=== PATIENT | female | born 1990 | race Two or more races ===

== ENCOUNTER 2024-11-17 04:57 | Day surgery (SDC) | payer OTHER, SELFPAY ==
[2024-11-17] VITALS (25 sets, daily range): BP systolic 87–121; BP diastolic 53–84; PULSE 66–96; RESP 16–24; TEMP 36.7–37.1; O2SAT 80–100; BMI 25.6
--- NOTE | 2024-11-17 05:06 | CRLHL7_ITS ---
For Patients: As a result of the Century Cures Act, medical imaging exams and procedure reports are released immediately into your electronic medical record. You may view this report before your referring provider. If you have questions, please contact your health care provider. INDICATION: Abdominal pain TECHNIQUE: CT abdomen and pelvis acquired with 69 cc Isovue 370 IV contrast. COMPARISON: None. FINDINGS: Lower chest: Bibasilar atelectasis. Liver: Unremarkable. Gallbladder and bile ducts: Unremarkable. Pancreas: Unremarkable. Spleen: Unremarkable. Adrenal glands: Unremarkable. Kidneys: No hydronephrosis or nephrolithiasis. GI tract: No obstruction. Fecalization of distal ileal contents, which can be seen with slow transit. Dilated appendix measuring 9 millimeters with appendicolith measuring 6 millimeters at the base. Vasculature: Abdominal aorta is normal in caliber. Mesenteric arteries are patent. Lymph nodes: No lymphadenopathy. Peritoneum/Abdominal Wall: Unremarkable. Pelvis: Unremarkable. Bones: Unremarkable for age. IMPRESSION: Dilated appendix with appendicolith at the base is concerning for early appendicitis. Please note that all CT scans at this facility use dose modulation, iterative reconstruction, and/or weight-based dosing when appropriate to reduce radiation dose to as low as reasonably achievable. Dictated by Chika Chung MD @ 11/17/2024 6:07:03 AM (Electronically Signed)
--- NOTE | 2024-11-17 05:08 | ED.ABDPAIN ---
HPI - Abdominal Pain General Chief Complaint: Abdominal Pain Stated Complaint: abdominal pain Time Seen by Provider: 11/17/24 04:59 History of Present Illness HPI narrative: Patient is a 32 to year old woman with chronic abdominal pain who presents with a mid abdominal pain with radiation through to her back. Pain is severe and 10 on 10 in intensity. She describes is a severe pressure. She has been having normal bowel movements although she is somewhat constipated. She has no reflux symptoms no nausea no vomiting. She states she had endoscopy and colonoscopy in July or 4 months ago but is unaware of the results. Patient states she has her menses right now. She has had no fevers no chills no night sweats. She has intermittent symptoms but nothing as bad as tonight. Related Data Allergies Allergy/AdvReac Type Severity Reaction Status Date / Time indomethacin Allergy Verified 11/17/24 05:09 Sulfa (Sulfonamide Allergy Verified 11/17/24 05:09 Antibiotics) Review of Systems Status of ROS Reports: 10 or more systems reviewed and unremarkable except as noted in History and below PFSH PFSH Social History Smoking Status: Never smoker Second hand tobacco smoke exposure: No How often do you have a drink containing alcohol: never AUDIT-C Alcohol total score: 0 Non-prescribed substance use: denies use Exam Narrative: Exam Narrative: EXAM GENERAL: Patient appears to be writhing EYES: No scleral icterus. LYMPH: No supraclavicular or cervical lymphadenopathy. SKIN: Visible skin seen during exam normal or with benign process only. EXT: No dependent lower extremity pedal edema. HEART: Regular rate and rhythm with no murmurs, rubs, or gallops. LUNGS: Clear to auscultation bilaterally with no crackles or wheezes. ABD: Soft, minimally tender to palpation info active bowel sounds some rebound noted. PSYCH: Good eye contact, speech is not pressured. Const: Vital Signs, click to edit/add: Vital Signs - 24 hr 11/17/24 05:05 11/17/24 05:41 11/17/24 05:42 Temperature 98.0 F 98.0 F Pulse Rate [Pulse Oximeter] 85 84 Respiratory Rate 24 20 Blood Pressure [Ri ght Upper Arm] 121/84 118/74 Pulse Oximetry 98 80 L 98 Oxygen Delivery Me thod Nasal Cannula Oxygen Flow Rate 2 11/17/24 05:43 Temperature Pulse Rate [Pulse Oximeter] Respiratory Rate Blood Pressure [Ri ght Upper Arm] Pulse Oximetry 98 Oxygen Delivery Me thod Nasal Cannula Oxygen Flow Rate 2 Course Course ED Course: Patient seen and examined. Normal saline started. 1 mg of Ativan given. CBC comprehensive metabolic panel lipase UA CT abdomen pelvis pending. Vital Signs Vital signs: Initial Vital Signs Temperature 98.0 F 11/17/24 05:05 Temperature Source Temporal Artery Scan 11/17/24 05:05 Pulse Rate 85 11/17/24 05:05 Respiratory Rate 24 11/17/24 05:05 Blood Pressure 121/84 11/17/24 05:05 Blood Pressure Mean 96 11/17/24 05:05 Blood Pressure Position Sitting 11/17/24 05:05 Pulse Oximetry 98 11/17/24 05:05 Vital Signs Temperature 98.0 F 11/17/24 05:05 Pulse Rate 85 11/17/24 05:05 Respiratory Rate 24 11/17/24 05:05 Blood Pressure 121/84 11/17/24 05:05 Pulse Oximetry 98 11/17/24 05:05 Temperature 98.0 F 11/17/24 05:42 Pulse Rate 84 11/17/24 05:42 Respiratory Rate 20 11/17/24 05:42 Blood Pressure 118/74 11/17/24 05:42 Pulse Oximetry 98 11/17/24 05:43 Oxygen Delivery Method Nasal Cannula 11/17/24 05:43 Oxygen Flow Rate 2 11/17/24 05:43 Medications Administered Medications: Generic Name Dose Route Start Last Admin Trade Name Freq PRN Reason Stop Dose Admin Hydromorphone HCl 0.5 mg 11/17/24 06:10 11/17/24 05:20 Hydromorphone 0.5 Mg/0.5 Ml Inj IVP 11/17/24 06:11 0.5 mg ONCE ONE Administration Discontinued Medications Generic Name Dose Route Start Last Admin Trade Name Freq PRN Reason Stop Dose Admin Sodium Chloride 1,000 mls @ 1,000 mls/hr 11/17/24 05:07 11/17/24 06:15 0.9 % Sodium Chloride 1000 Ml IV 11/17/24 06:06 Infused .Q1H ANDERS Infusion Lorazepam 1 mg 11/17/24 05:07 11/17/24 05:12 Lorazepam 2 Mg/Ml Inj IVP 11/17/24 05:08 1 mg ONCE ONE Administration MDM - Abdominal Pain MDM Narrative Medical decision making narrative: Patient arrives with durable abdominal pain is in the midline. She was given IV Ativan and Dilaudid to help with her symptoms. Her CT [place] positive [place] [id number]. I did call and speak with the general surgeon and the patient will have an appendectomy this morning. She is medically stable. Lab Data Labs: Lab Results 11/17/24 Range/Units 05:10 WBC 16.41 H (4.50-11.00) K/uL RBC 4.61 (4.00-5.20) m/uL Hgb 11.9 L (12.0-16.0) gm/dL Hct 35.7 (33.0-51.0) % MCV 77 L (80-100) fL MCH 26 (26-34) pg MCHC 33 (32-36) gm/dL RDW Coeff of Karie 13.3 (11.5-15.5) % Plt Count 386 (140-440) K/uL Neut % (Auto) 89.0 H (42.0-72.0) % Lymph % (Auto) 7.3 L (20-44) % Clinton % (Auto) 3.4 (0.0-11.0) % Eos % (Auto) 0.1 (0.0-7.0) % Baso % (Auto) 0.1 (0.0-3.0) % Neut # (Auto) 14.60 H (1.7-7.0) K/uL Lymph # (Auto) 1.20 (0.90-2.90) K/uL Clinton # (Auto) 0.60 (0.00-0.90) K/UL Eos # (Auto) 0.00 (0.00-0.50) K/uL Baso # (Auto) 0.00 (0.00-0.30) K/uL Abs Immat Gran (auto) 0.00 (0.00-0.30) K/uL Imm/Tot Granulo (auto) 0.1 % Sodium 139 (135-149) mmol/L Potassium 3.7 (3.6-5.1) mmol/L Chloride 104 (96-114) mmol/L Carbon Dioxide 21 (20-32) mmol/L Anion Gap 14 (7-15) mEq/L BUN 14 (5-24) mg/dL Creatinine 0.8 (0.5-1.5) mg/dL Estimated Creat Clear 79.85 Estimated GFR 100 ml/min Glucose 135 H (60-115) mg/dL Calcium 9.6 (8.4-10.6) mg/dL Total Bilirubin 0.7 (0.1-1.5) mg/dL AST 35 (12-35) U/L ALT 37 H (4-35) U/L Alkaline Phosphatase 95 (40-150) U/L Total Protein 8.5 H (6.0-8.3) g/dL Albumin 5.0 (3.3-5.0) g/dL Lipase 103 (23-300) U/L Discharge Plan Discharge Clinical Impression: Acute appendicitis Patient Disposition: Admitted As Observation Condition: Stable Activity Level: Other Discharge Diet: Other
[2024-11-17] MEDS: LORazepam 2 MG/ML inj 1 MG IVP (05:12)
[2024-11-17] MEDS: 0.9 % SODIUM CHLORIDE 1000 ml 1,000 ML IV (05:13)
[2024-11-17] MEDS: HYDROmorphone 0.5 mg/0.5 ml inj IVP ×2 (05:20→09:10)
[2024-11-17 05:24] LABS: Basophils Percent Auto 0.1 % (0.0-3.0); Eosinophils Percent Auto 0.1 % (0.0-7.0); Hematocrit 35.7 % (33.0-51.0); Hemoglobin* 11.9 gm/dL (12.0-16.0); Immature Granulocytes Pct Auto 0.1 %; Lymphocytes Percent Auto 7.3 % (20-44); Mean Corpuscular HGB Conc 33 gm/dL (32-36); Mean Corpuscular Hemoglobin 26 pg (26-34); Mean Corpuscular Volume 77 fL (80-100); Monocytes Percent Auto 3.4 % (0.0-11.0); Platelet Count* 386 K/uL (140-440); RDW Coefficient of Variation % 13.3 % (11.5-15.5); Red Blood Count 4.61 m/uL (4.00-5.20); White Blood Count* 16.41 K/uL (4.50-11.00)
[2024-11-17 05:32] LABS: Slide Review Reflex No
[2024-11-17 05:37] LABS: Chloride* 104 mmol/L (96-114); Potassium* 3.7 mmol/L (3.6-5.1); Sodium* 139 mmol/L (135-149)
[2024-11-17 05:40] LABS: Alanine Aminotransferase* 37 U/L (4-35); Alkaline Phosphatase* 95 U/L (40-150); Anion Gap 14 mEq/L (7-15); Aspartate Amino Transferase* 35 U/L (12-35); Bilirubin Total* 0.7 mg/dL (0.1-1.5); Blood Urea Nitrogen* 14 mg/dL (5-24); Calcium* 9.6 mg/dL (8.4-10.6); Carbon Dioxide* 21 mmol/L (20-32); Creatinine* 0.8 mg/dL (0.5-1.5); Est. Creatinine Clearance* 79.85; Estimated Glomerular Filt Rate 100 ml/min; Glucose* 135 mg/dL (60-115); Lipase* 103 U/L (23-300); Total Protein* 8.5 g/dL (6.0-8.3)
[2024-11-17 05:45] LABS: Appearance Urine Clear (Clear); Bilirubin Urine Negative (Negative); Blood Urine 1+ (Negative); Color Urine Yellow (Yellow); Glucose Urine Negative (Negative); Ketones Urine 3+ (Negative); Leukocyte Esterase Urine Negative (Negative); Nitrite Urine Negative (Negative); Protein Urine Negative (Negative); Specific Gravity Urine 1.015 (1.000-1.030); Urobilinogen Urine 0.2 (0.2-1.0); pH Urine 8.5 (5.0-8.5)
[2024-11-17 06:26] LABS: Bacteria Urine Few; RBC Urine 0-2 (0-2); Squamous Epithelial Cell Urine Few (None-Few); WBC Urine 0-2 (0-5)
--- OUTSIDE RECORDS SUMMARY | 2024-11-17 06:48 | XMS_ITS ---
Author Organization [facility] Address [address] [facility] [address] [place] [address] Care Team Providers Care Capsule Filler Name Role Phone Radha Guillermo Primary Care Provider Allergies Allergen (clinical drug ingredient) Drug/Non Drug Allergy documented on EMR Reaction Allergy Type Onset Date Status indomethacin Indomethacin Unknown Drug Allergy 08/28/2021 Active sulfasalazine sulfaSALAzine Unknown Drug Allergy 2 Active REASON FOR VISIT 3 month follow up/flc, RA Medications Medication SIG (Take, Route, Frequency, Duration) Notes Start Date End Date Status Omeprazole 20 MG take 1 capsule (20 m g) by oral route once daily before a meal Oral 1 Active Folic Acid 1 MG take 1 tablet (1 mg) by oral route once daily Oral 1 Active Spironolactone 50 MG 1 tablet Orally Onc e a day for 30 day(s) Active Rosuvastatin Calcium 5 MG 1 tablet Orall y Once a day for 30 day(s) Active Simponi 50 mg/0.5 mL inject 0.5 millilit er (50 mg) by subcutaneous route once a month Subcutaneous monthly for 90 days 03/17/2023 07/24/2024 Active Encounters Encounter Location Date Provider Diagnosis [facility] [address] [facility] [address] [place] [address] 01/27/2024 Radha Guillermo Rheumatoid arthritis without rheumatoid factor, multiple sites M06.09 ; History of pericarditis Z86.79 ; History of uveitis Z86.69 and High risk medication use Z79.899 Assessments Encounter Date Diagnosis (ICD Code) Assessment Notes Treatment Notes Treatment Clinical Notes Section Notes 01/27/2024 Rheumatoid arthritis without rheumatoid factor, multiple sites (ICD-10 - M06.09) mildly symptomatic, simponi helping, will continue, moving to [place] soon, advised to find a manager security there, will release records, med refilled 01/27/2024 History of pericarditis (ICD-10 - Z86.79) mildly symptomatic, simponi helping, will continue, moving to [place] soon, advised to find a manager security there, will release records, med refilled 01/27/2024 History of uveitis (ICD-10 - Z86.69) mildly symptomatic, simponi helping, will continue, moving to [place] soon, advised to find a manager security there, will release records, med refilled 01/27/2024 High risk medication use (ICD-10 - Z79.899) mildly symptomatic, simponi helping, will continue, moving to [place] soon, advised to find a manager security there, will release records, med refilled Plan Of Treatment Medication Medication Name Sig Start Date Stop Date Notes Simponi 50 mg/0.5 mL inject 0.5 millilit er (50 mg) by subcutaneous route once a month Subcutaneous monthly for 90 days 03/17/2023 07/24/2024 Progress Notes * Yessica NOLASCO ADOB:1990 (33 yo F)Acc No.[id number]:01/27/2024 Patient: Yessica JENKINS A Provider: Jose GUILLERMO MD :1990 A ge:33 Y S ex:Female Date:01/27/2024 Address:[address] [place] [address] Subjective: * Chief Complaints: * 3 month follow up/flcRA * HPI: G eneral Follow up: Synchronous video/audio telecommunication with [employer] Patient has agreed to telehealth visit and is aware insurance will be billed for this visit Location: patient at home, physician in office on simponi injection, helping, elbow ache a little, other joints are fine, am stiffness 2 to 3 hours, takes aleve or tylenol as needed moving to [place] soon stopped MTX did not work and caused GI issues. plaquenil caused eye side effects, Humira worked at the beginning. It lost some effectiveness after a while. 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 * ROS: G eneral / Constitutional: Patient denies c hange in appetite, chills, fatigue, fever, weight loss, weakness. C omments S [facility] for details. M usculoskeletal: Comments [facility] for details. S kin: Comments [facility] for details . N eurologic: Patient denies d izziness, gait abnormality, headache, tingling / numbness . * Medical History: * Surgical History: C section; 2021-08-28 * Hospitalization/Major Diagno stic Procedure: * Family History: M igrated Family History: Breast cancer , Heart Attack , Kidney Cancer , Lung Cancer . * Social History: M igrated Social History: M igrated Social History: :: 1 Daughter , Exercise :: Does not exercise regularly , Marital Status :: , Substance Use :: rare alcohol usage , Substance Use :: Tobacco :: Former :: note : 10/09/2021 - quit 7-8 years ago. * Medications: T akingFolic Acid 1 MG Tablet take 1 tablet (1 mg) by oral route once daily Oral 1 Omeprazole 20 MG Capsule Delayed Release take 1 capsule (20 mg) by oral route once daily before a meal Oral 1 Simponi 50 mg/0.5 mL Solution Prefilled Syringe inject 0.5 milliliter (50 mg) by subcutaneous route once a month Subcutaneous [id number]-[id number] , stop date 03/11/2024Spironolactone 50 MG Tablet 1 tablet Orally Once a day Rosuvastatin Calcium 5 MG Tablet 1 tablet Orally Once a day Taking Folic Acid 1 MG Tablet take 1 tablet (1 mg) by oral route once daily Oral 1 Taking Omeprazole 20 MG Capsule Delayed Release take 1 capsule (20 mg) by oral route once daily before a meal Oral 1 Taking Simponi 50 mg/0.5 mL Solution Prefilled Syringe inject 0.5 milliliter (50 mg) by subcutaneous route once a month Subcutaneous [id number]-56 , stop date 03/11/2024Taking Spironolactone 50 MG Tablet 1 tablet Orally Once a day Taking Rosuvastatin Calcium 5 MG Tablet 1 tablet Orally Once a day * Allergies: I ndomethacin: Allergy - Onset Date 08/28/2021ulfaSALAzine: Allergy - Onset Date 12/24/2021no[Allergies Verified] Objective: * Vitals: * Examination: G eneral Examination: General appearance: a lert, well-nourished and in no acute distress. Head: n ormocephalic, atraumatic. Eyes: n ormal. Skin: n o rash. Lungs: r espiratory effort normal. P sychiatry: Affect / mood: n ormal affect, normal mood. ? N eurology: s peech normal. Assessment: * Assessment: 1. R heumatoid arthritis without rheumatoid factor, multiple sites - M06.09 (Primary) ? 2 . H istory of pericarditis - Z86.79 3 . H istory of uveitis - Z86.69 4 . H igh risk medication use - Z79.899 mildly symptomatic, simponi helping, will continue, moving to [place] soon, advised to find a manager security there, will release records, med refilled Plan: * Treatment: * Procedure Codes: * Billing Information: * Visit Code: 16852 Office Visit, Est Pt., Level 4. Modifiers: 95 * Procedure Codes: * Sign off status: Completed true * Provider: Jose GUILLERMO MD Date: 0 01/27/2024 Generated for Fernandez ivan/North/Bibi on: 0 11/17/2024 06:48 AM CDT History and Physical Notes * HPI (History of Present Illness) Category Sub-Category Detail Notes Category Not es General Follow up Synchronous video/audio telecommunication with [facility] Patient has agreed to telehealth visit and is aware insurance will be billed for this visit Location: patient at home, physician in office on simponi injection, helping, elbow ache a little, other joints are fine, am stiffness 2 to 3 hours, takes aleve or tylenol as needed moving to [place] soon stopped MTX did not work and caused GI issues. plaquenil caused eye side effects, Humira worked at the beginning. It lost some effectiveness after a while. 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 Examination Category Sub-Category Detail Notes Category Not es Neurology speech normal Psychiatry Affect / mood: normal affect, normal mood General Examination General appearance: alert, w ell-nourished and in no acute distress Head: normocephalic, atrau matic Eyes: normal Lungs: respiratory effort n ormal Skin: no rash
--- OUTSIDE RECORDS SUMMARY | 2024-11-17 06:48 | XMS_ITS | Clinical Summary ---
Author Organization [facility] [employer] Address [address] [place] [address] Care Team Providers Care Auditor Internal Name Role Phone Unavailable Primary Care Provider Unavailabl e Source Comments [facility],non-owned Affiliates and Associated Physician Practices is amultiple site organization consisting of ambulatory clinics and hospital sitesin [place], [place], [place] and [place]. This disclosure is being madepursuant to the Care Everywhere program and may not contain all information available regarding this patient. Last updated 18.[facility] [employer] Allergies Active Allergy Reactions Criticality Noted Date Comments Indomethacin Rash,Fever,Vomiting Medium 09/30/2018 Medications * Be aware that medications may not be up to date on this document. Alwaysverify current medications with the patient. raNITIdine (ZANTAC) 150 MG tablet 150 mg at bedtime 9 Active vitamin D3 (CHOLECALCIFER OL) 1000 UNITS tablet Take 2,000 Units by mouth once daily Active HUMIRA PEN 40 MG/0.4ML injection Inject 0.4 mL subcutaneously every 14 days 1 kit 9 Active Active Problems Problem Noted Date Diagnosed Date Osteoarthritis 09/30/2018 RA (rheumatoid arthritis) 09/30/2018 Dyspepsia 09/30/2018 Ankylosing spondylitis 09/30/2018 Psoriatic arthritis 09/30/2018 Vitamin D deficiency 09/30/2018 Immunizations Immunization Administration Dates Next Due Human Papilloma Virus Vaccine 11/18/2012 INFLUENZA VACCINE 02/08/2015 Maori B Encephalitis Im 07/28/2013 TDAP (7yrs+) 08/28/2014 Family History Medical History Relation Name Comments Other Brother learning disab Seizures Brother Cancer - Other Maternal Grandfather lung Cancer - Breast Maternal Grandmother Cancer - Other Maternal Grandmother lung cancer Cancer - Breast Mother 40's and aga in at 52 Cancer - Other Mother Relation Name Status Comments Brother Alive Maternal Grandfather Alive Maternal Grandmother Mother Alive Social History Tobacco Use Types Packs/Day Years Used Date Smoking Tobacco: Former Smokeless Tobacco: Never Comments No Sex and Gender Information Value Date Recorded Sex Assigned at Not on file Legal Sex Female 1:[address] RECORDER Gender Identity Not on file Sexual Orientation Straight 10/29/2020 9: 29 AM CDT Last Filed Vital Signs Vital Sign Reading Time Taken Comments Blood Pressure 121/73 11/11/2021 10:40 PM CDT Pulse 118 11/11/2021 10:40 PM CDT Temperature 38.9 C (102 F) 11/11/2021 10:40 PM CDT Respiratory Rate 22 11/11/2021 10:40 PM CDT Oxygen Saturation 100% 11/11/2021 10:40 PM CDT Inhaled Oxygen Concentration - - Weight 72.6 kg (160 lb) 11/11/2021 10:40 PM CDT Height 157.5 cm (5' 2) 11/11/2021 10:40 PM CDT Body Mass Index 29.26 11/11/2021 10:40 PM CDT Plan of Treatment Health Maintenance Due Date Last Done Comments PAP SMEAR 1990 HEPATITIS C SCREENING 07/26/2010 HEPATITIS B VACCINE (1 of 3 - 19+ 3-dose series) 2011 HPV VACCINE (2 - 3-dose series) 12/16/2012 11/18/2012 COVID-19 VACCINE ( season) 2024 DEPRESSION SCREENING 07/05/2024 DTAP/TDAP/TD VACCINES (2 - Td or Tdap) 08/28/2024 08/28/2014 INFLUENZA VACCINE (Season Ended) 2025 04/15/2022, 03/21/2021, 04/06/2020, Additional history exists ZOSTER VACCINE (1 of 2) 2042 HIV SCREENING Completed 11/11/2021 HIB VACCINE Aged Out No longer eligi ble based on patient's age to complete this topic MENINGOCOCCAL (Group B) VACCINE SHARED DECISION-MAKING Aged Out No longer eligible based on patient's age to complete this topic MENINGOCOCCAL GROUPS A/C/Y/W VACCINE Aged Out No longer eligible based on patient's age to complete this topic PNEUMOCOCCAL VACCINE Aged Out No long er eligible based on patient's age to complete this topic Procedures Procedure Name Priority Date/Time Associated Diagnosis Comments HIV-1 HIV-2 ANTIBODY + HIV P24 AG PANEL STAT 11/11/2021 11:52 PM CDT from Last 3 Months or Most Recently Relevant to Health Maintenance Results * HIV-1 HIV-2 ANTIBODY + HIV P24 AG PANEL (11/11/2021 11:52 PM CDT) HIV1/2 Ab + P24 Ag Non Reactive Non Reactive 11/12/2021 12:43 AM CDT [facility] Blood BLOOD SPECIMEN / Unknown Venipuncture / Unknown 11/11/2021 11:52 PM CDT 11/12/2021 12:03 AM CDT Narrative [facility] - 11/12/2021 12:43 AM CDT No Laboratory evidence of HIV infection. Mona Gamez MD LAB - CHEMISTRY ORDERABLES Final Result [facility] [address] [place] [address] from Last 3 Months or Most Recently Relevant to Health Maintenance Insurance
--- OUTSIDE RECORDS SUMMARY | 2024-11-17 06:48 | XMS_ITS | Clinical Summary ---
Author Organization [facility] Address [address] [place] [address] Care Team Providers Care Permit Review Assistant Name Role Phone Unavailable Primary Care Provider Unavailabl e Source Comments You are receiving this document as you are listed as the primary care provider,follow-up provider, or the patient has been referred to you for consultation.This is in compliance with the Medicare andMedicaid EHR Incentive Program,which states Providers who transition their patient to another setting of careor provider of care or refers their patient to another provider of care shouldprovide summary care record for each transition of care or referral. [facility] Allergies Active Allergy Reactions Criticality Noted Date Comments Indomethacin Other, see comments High 04/14/2024 Everything on the list Sulfasalazine Itching,Rash High 04/14/2024 Non stop fevers Medications esomeprazole (NEXIUM) 20 MG capsule Take 1 Capsule (20 mg) by mouth daily. Active spironolactone (ALDACTONE) 50 MG tablet Take 1 Tablet (50 mg) by mouth daily. Active sertraline 25 mg 05/18/2024 Active gabapentin (NEURONTIN) 100 MG capsule Take 1 Capsule (100 mg) by mouth daily at bedtime for 30 days. 30 Capsule 09/13/2024 Active ferrous sulfate 325 (65 Fe) MG tablet Take 1 Tablet (325 mg) by mouth daily with meal. 90 Tablet 1 10/11/2024 Active Active Problems Problem Noted Date Diagnosed Date Psoriatic arthritis 04/14/2024 Encounters Date Type Department Care Team Description 10/12/2024 Telephone Rheumatology at [address] [address] Anayeli Morales MD Forms (Physician's Certification for Job Accomodation) 10/11/2024 Results Follow-Up Rheumatology at [address] [place] [address] Anayeli Morales MD 10/10/2024 1:45 PM CDT Office Visit [place] [address] [facility] [address] [place] [address] Psoriatic arthritis (HRC) (Primary Dx); Anemia, unspecified type 09/13/2024 10:30 AM CDT Telemedicine Rheumatology at [address] [address] Anayeli Morales MD Psoriatic arthritis (HRC) (Primary Dx); High risk medication use 09/11/2024 9:45 AM CDT Office Visit [place] [address] [facility] [address] [place] [address] Psoriatic arthritis (HRC) (Primary Dx) 09/04/2024 Telephone Rheumatology at [address] [address] Anayeli Morales MD Forms (Application for Disability Parking) 08/28/2024 9:00 AM [employer]PER[employer] Office Visit [place] [address] [facility] [address] [place] [address] Psoriatic arthritis (HRC) (Primary Dx) from Last 3 Months Social History Tobacco Use Types Packs/Day Years Used Date Smoking Tobacco: Never Assessed Comments Unknown Sex and Gender Information Value Date Recorded Sex Assigned at Female 06/04/2024 12:13 PM [employer] Legal Sex Female 4:26 PM CDT Gender Identity Female 06/04/2024 12:13 PM [employer]PER[employer] Sexual Orientation Straight 06/04/2024 12 :13 PM [employer]PER[employer] Last Filed Vital Signs Vital Sign Reading Time Taken Comments Blood Pressure 91/62 10/10/2024 3:40 PM CDT Pulse 84 10/10/2024 3:40 PM CDT Temperature 36.2 C (97.2 F) 10/10/2024 1:38 PM CDT Respiratory Rate - - Oxygen Saturation - - Inhaled Oxygen Concentration - - Weight 68.9 kg (152 lb) 10/10/2024 1:38 PM CDT Height - - Body Mass Index - - Plan of Treatment Upcoming Encounters Date Type Department Care Team (Late st Contact Info) Description 12/06/2024 10:00 AM CDT Appointment [facility] [address] [place] [address] Health Maintenance Due Date Last Done Comments Cervical Cancer Screening Due 1992 HIV Screening (Preventive Services) 2008 Adult Preventive Visit 2010 HepB Vaccine (1) 2011 COVID-19 Vaccine ( season) 2024 DTaP/Tdap/Td Vaccine (4 - Tdap) 10/02/2027 10/01/2017, 08/28/2014, 08/29/2012 Zoster/Shingles Vaccine (1 of 2) 2042 MCV4 Vaccine Aged Out 08/29/2012 No longer eligi ble based on patient's age to complete this topic IPV (Polio) Vaccine Aged Out 09/29/2012 No longe r eligible based on patient's age to complete this topic HepA Vaccine Aged Out 06/14/2013, 12/04, 09/29/2012, Additional history exists No longer eligible based on patient's age to complete this topic HPV Vaccine Completed 12/03/2016, 070 03/2016, 07/24/2015, Additional history exists Influenza Vaccine Completed 04/13/2024, , 07/05/2017, Additional history exists Hep C Screening (Preventive Services) Completed 04/14/2024 Hib Vaccine Aged Out No longer eligi ble based on patient's age to complete this topic Meningococcal B Vaccine Aged Out No l onger eligible based on patient's age to complete this topic Pneumococcal Vaccine Aged Out No long er eligible based on patient's age to complete this topic Procedures Procedure Name Priority Date/Time Associated Diagnosis Comments IRON PROFILE (IRON,TIBC,%SAT.(CALC) ) Routine 10/10/2024 1:47 PM CDT Anemia, unspecified type FERRITIN Routine 10/10/2024 1:47 PM CDT Anemia, unspecified type CBC WITH DIFFERENTIAL REVIEW Routine 10/10/2024 1:47 PM CDT Psoriatic arthritis (HRC) C-REACTIVE PROTEIN Routine 10/10/2024 1: 47 PM CDT Psoriatic arthritis (HRC) SEDIMENTATION RATE (ESR) Routine 10/10/2024 1:47 PM CDT Psoriatic arthritis (HRC) COMPREHENSIVE METABOLIC PANEL Routine 10/10/2024 1:47 PM CDT Psoriatic arthritis (HRC) HEPATITIS PANEL ACUTE WITH REFLEX TO CONFIRMATION Routine 04/14/2024 1:29 PM CDT Psoriatic arthritis (HRC) from Last 3 Months or Most Recently Relevant to Health Maintenance Results * (ABNORMAL) CBC with Differential Review (10/10/2024 1:47 PM CDT) Hematology Review 10/10/2024 6:03 PM [facility] WBC 5.9 3.5 - 10.5 x10(9)/L 10/10/2024 6:03 PM [facility] RBC 4.30 3.90 - 5.03 x10(12)/L 10/10/2024 6:03 PM [facility] Hemoglobin 10.9(L) 12.0 - 15.5 g/dL 10/10/2024 6:03 PM [facility] HCT 34.1(L) 34.9 - 44.5 % 10/10/2024 6:03 PM [facility] MCV 79.3(L) 80.0 - 100.0 fL 10/10/2024 6:03 PM [facility] MCH 25.3(L) 27.6 - 33.3 pg 10/10/2024 6:03 PM [facility] MCHC 32.0 31.5 - 35.2 g/dL 10/10/2024 6:03 PM [facility] RDW 15.0 11.9 - 15.5 % 10/10/2024 6:03 PM [facility] Platelets 305 150 - 450 x10(9)/L 10/10/2024 6:[address] [facility] Automated NRBC 0 <=0 /100 WBC 10/10/2024 6:[address] [facility] Neutrophil Absolute 3.2 1.7 - 7.0 10(9)/L 10/10/2024 6:[address] [facility] Lymphocyte Absolute 2.3 1.0 - 4.8 10(9)/L 10/10/2024 6:[address] [facility] Monocyte Absolute 0.3 0.2 - 0.9 10(9)/L 10/10/2024 6:[address] [facility] Eosinophil Absolute 0.1 0.0 - 0.5 10(9)/L 10/10/2024 6:[address] [facility] Basophil Absolute 0.0 0.0 - 0.3 10(9)/L 10/10/2024 6:[address] [facility] Immature Granulocyte % 0.3 0.0 - 0.5 % 10/10/2024 6:[address] [facility] Immature Granulocyte Absolute 0.0 <=0.0 10(9)/L 10/10/2024 6:03 PM [facility] Blood Venipuncture / Unknown 10/10/2024 1:47 PM CDT 10/10/2024 2:54 PM CDT Anayeli Morales MD LAB_1 Final Result Performing Organization Address [facility]/State/[facility] Co de Phone Number [address] * (ABNORMAL) Comprehensive Metabolic Panel (10/10/2024 1:47 PM CDT) Sodium 137 136 - 145 mmol/L 10/10/2024 9:19 PM CDT [facility] Potassium 3.6 3.5 - 5.1 mmol/L 10/10/2024 9:19 PM CDT [facility] Chloride 106 98 - 109 mmol/L 10/10/2024 9:19 PM CDT [facility] CO2 19(L) 20 - 29 mmol/L 10/10/2024 9:[address] [facility] Anion Gap 12 6 - 16 mmol/L 10/10/2024 9:19 PM [facility] Calcium 9.4 8.4 - 10.4 mg/dL 10/10/2024 9:[address] [facility] BUN 8 7 - 26 mg/dL 10/10/2024 9:19 PM [facility] Creatinine 0.57 0.55 - 1.02 mg/dL 10/10/2024 9:19 PM [facility] Alkaline Phosphatase 79 40 - 150 U/L 10/10/2024 9:19 PM [facility] AST (SGOT) 30 10 - 40 U/L 10/10/2024 9:19 PM [facility] ALT (SGPT) 24 0 - 55 U/L 10/10/2024 9:19 PM [facility] Bilirubin, Total 0.4 0.2 - 1.2 mg/dL 10/10/2024 9:19 PM [facility] Protein, Total 7.6 6.4 - 8.3 g/dL 10/10/2024 9:19 PM [facility] Albumin 4.3 3.5 - 5.0 g/dL 10/10/2024 9:19 PM [facility] Glucose 106(H) 70 - 100 mg/dL 10/10/2024 9:19 PM [facility] Comment:The given reference range is for the fasting state. Non-fasting reference range for glucose is 70 - 180 mg/dL. GFR, Estimated >60 >60 mL/min/1. 73m2 10/10/2024 9:19 PM [facility] Hours Fasting 0.1 8 - 12 Hours 10/10/2024 9:19 PM [facility] Blood IV Start / Unknown 1:47 PM CDT 10/10/2024 2:24 PM T Anayeli Morales MD LAB_[address] [facility] [address] * FERRITIN (10/10/2024 1:47 PM CDT) Ferritin 17 9 - 204 ng/mL 10/11/2024 8:56 AM CDT [facility] Blood IV Start / Unknown 5 1:47 PM CDT 10/10/2024 2:24 PM CDT us Anayeli Morales MD LAB_1 Final Result Performing Organization Address [facility] Co de Phone Number [facility] [address] * C-Reactive Protein (every 3 months) (10/10/2024 1:47 PM CDT) C-Reactive Protein <0.1 0.0 - 0.5 mg/dL 10/10/2024 9:[address] [facility] Blood IV Start / Unknown 1:47 PM CDT 10/10/2024 2:24 PM CDT us Anayeli Morales MD LAB_1 Final Result Performing Organization Address [facility] Co de Phone Number [facility] [address] * (ABNORMAL) IRON PROFILE (IRON,TIBC,%SAT.(CALC)) (10/10/2024 1:47 PM CDT) Iron 47(L) 50 - 170 mcg/dL 10/11/2024 10:[address] [facility] Transferrin 406(H) 180 - 382 mg/dL 10/11/2024 10:[address] [facility] TIBC, Calculated 508(H) 240 - 450 mcg/dL 10/11/2024 10:[address] [facility] % Saturation, Calculated 9(L) 10 - 50 % 10/11/2024 10:09 AM CDT [facility] TIBC Interpretation Pattern of iron deficiency . 10/11/2024 10:[address] [facility] Blood IV Start / Unknown 5 1:47 PM CDT 10/10/2024 2:24 PM CDT Anayeli Morales MD LAB_1 Final Result Performing Organization Address City/[facility]/ZIP Co de Phone Number [facility] [address] * Sedimentation Rate (ESR) (10/10/2024 1:47 PM CDT) Sedimentation Rate 8 0 - 20 mm/hr 10/10/2024 3:[address] [facility] Blood IV Start / Unknown 5 1:47 PM CDT 10/10/2024 2:24 PM CDT Anayeli Morales MD LAB_1 Final Result [address] * Hepatitis Panel with Reflex to Confirmation (04/14/2024 1:29 PM CDT) Hepatitis A Antibody, IgM Negative (Non Reactive) Negative (Non Reactive) 04/14/2024 7:27 PM CDT [facility] Comment:IgM anti-HAV not det ected. Does not exclude the possibility of exposure to or infection with HAV. Levels of IgM anti-HAV may be below the cut-off in early infection. Hepatitis Bc Antibody,IgM Negative (Non Reactive) Negative (Non-Reacti ve) 04/14/2024 7:27 PM CDT [facility] Comment:IgM anti-HBc not det ected. Does not exclude the possibility of exposure to or infection with HBV. Hepatitis B Surface Antigen Negative (Non Reactive) Negative (Non Reactive) 04/14/2024 7:27 PM CDT [facility] Hepatitis C Antibody Negative (Non Reactive) Negative (Non Reactive) 04/14/2024 7:27 PM CDT [facility] Comment:Antibodies to HCV no t detected. Does not exclude the possiblity of exposure to HCV. Blood Venipuncture / Unknown 04/14/2024 1:29 PM CDT 04/14/2024 1:29 PM CDT us Anayeli Homer Morales MD LAB_1 Final Result [facility] [address] [place] [id number], [facility] from Last 3 Months or Most Recently Relevant to Health Maintenance [place] [address] [address] [place] [address] SELECT
--- OUTSIDE RECORDS SUMMARY | 2024-11-17 06:48 | XMS_ITS | Patient Health Record ---
Author Organization [facility] Address [address] [facility] [address] [place] [address] Care Team Providers Care Planer Feeder Name Role Phone Radha Ram Primary Care Provider Allergies Allergen (clinical drug ingredient) Drug/Non Drug Allergy documented on EMR Reaction Allergy Type Onset Date Status indomethacin Indomethacin Unknown Drug Allergy 08/28/2021 Active sulfasalazine sulfaSALAzine Unknown Drug Allergy Active Reason For Referral No Information Medications Medication SIG (Take, Route, Frequency, Duration) [...] Once a day for 30 day(s) Active Problems Problem Type SNOMED Code ICD Code Onset Dates Problem Status W/U Status Risk Notes Problem [id number] Rheumatoid arthritis without rheumatoid factor, multiple sites (M06.09) Active confirmed Encounters Encounter Location Date Provider Diagnosis [facility] [address] [facility] [address] [place] [address] 01/27/2024 Radha Ram Rheumatoid arthritis without rheumatoid factor, multiple sites M06.09 ; History of pericarditis Z86.79 ; History of uveitis Z86.69 and High risk medication use Z79.899 [facility] [address] [facility] [address] [place] [address] 12/02/2023 Radha Ram [facility] [address] [facility] [address] [place] [address] 12/02/2023 Radha Ram [facility] [address] [place] [address] 04/05/2024 Radha Rma [facility] [address] [facility] [address] [place] [address] 01/13/2024 Radha Ram Assessments Encounter Date Diagnosis (ICD Code) Assessment Notes Treatment Notes Treatment Clinical Notes Section Notes 01/27/2024 Rheumatoid arthritis without rheumatoid factor, multiple sites (ICD-10 - M06.09) mildly symptomatic, hillary helping, will continue, moving to [place] soon, 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 there, will release records, med refilled 01/27/2024 History of pericarditis (ICD-10 - Z86.79) mildly symptomatic, simponi helping, will continue, moving to [place] soon, 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 there, will release records, med refilled 01/27/2024 History of uveitis (ICD-10 - Z86.69) mildly symptomatic, peacei helping, will continue, moving to [place] soon, 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 there, will release records, med refilled 01/27/2024 High risk medication use (ICD-10 - Z79.899) mildly symptomatic, simponi helping, will continue, moving to [place] soon, 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 there, will release records, med refilled Plan Of Treatment Pending Test Test Name Order Date Quantiferon Gold 2023 Insurance Providers Payer Name Payer Address Payer Phone Subscriber Number Group Number Insured Name Patient Relationship to Insured Coverage Start Date Coverage End Date [address] [employer] [place] [address] [id number] Yessica Contreras Self - patient is the insured Medical (General) History Medical History History ICD Code Fibromyalgia; osteoarthritis; Pericarditis; Psoriatic arthritis; PTSD (post-traumatic stress disorder); Rheumatoid arthritis; Uveitis; Surgical History Surgery Date(Month/Year) C section; 2021-08-28
--- OUTSIDE RECORDS SUMMARY | 2024-11-17 06:49 | XMS_ITS | Continuity of Care Document ---
Author Name [facility] Address [address] [place] [address] Organization [facility] Care Team Providers Care Kitchen Aide Name Role Phone [facility] HIE Unavailable Unavailable Encounters Location Location Details Encounter Type Encounter Number Reason For Visit Attending Provider ADM Date DC Date Status Source [facility] [id number] 4 MO FU [facility] OUTPAT[facility] [id number] L EYE PAIN/BL URRY VISION Reina Blake [facility] [place] EYE EYE OUTPATIENT [id number] AFTER MRI 07/18/19 Afua Da Silva [facility] [place] [facility] OUTPATIENT [id number] AFTER [facility]/18[facility] [place] [facility] [id number] Month Follow Up [facility] OUTPATIENT [id number] 2 MON F/U [place] [facility] [place] [facility] OUTPATIENT [id number] 2 MON F/U [facility] [place] [facility] [id number] [facility] EYE EYE OUTPATIENT [id number] 6 month fu Gabe Kitchen [facility] [place]
--- OUTSIDE RECORDS SUMMARY | 2024-11-17 06:49 | XMS_ITS | Continuity of Care Document ---
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 It does not include entries that were removed or entered in error. 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 Condition DoD Back pain Active 6 Condition Unknown Organization Chronic post-traumatic stress disorder Active 6 Condition Unknown Organization 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 6 Condition Unknown Organization Mood disorder of depressed type Active 6 Condition Unknown Organization Menstrual cramps Active 6 Condition Unknown Organization Sleeplessness Active 6 Condition Unknown Organization Primary fibromyalgia syndrome Active 6 Condition Unknown Organization Somatoform disorder Active 6 Condition Unknown Organization Encounter for other administrative examinations Active 6 Condition [facility] Post-traumatic stress disorder, chronic Active 6 Condition [facility] Other chronic pain Active 6 Condition [facility] Back pain Active Condition [facility] Chronic post-traumatic stress disorder Active Condition [facility] 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 Condition [facility] Depression Active Condition [facility] Iron deficiency anemia of Active Condition [facility] Menstrual cramps Active Condition [facility] Mood disorder of depressed type Active Condition [facility] Primary fibromyalgia syndrome Active Condition [facility] Rheumatoid arthritis Active Condition [facility] Sleeplessness Active Condition [facility] Somatoform disorder Active Condition [facility] Vitamin D deficiency Active Condition [address] Tobacco use Active Condition DoD feeling tired (fatigue) Active Condition DoD FIBROMYALGIA Active Condition DoD insomnia Active Condition DoD visit for: administrative purpose Inactive Condition DoD LUMBAGO Active Condition DoD CONDITIONS INFLUENCING HEALTH STATUS Active Condition DoD visit for: screening mental / developmental disorders Inactive Condition DoD CHRONIC PAIN Active Condition DoD depression Active Condition DoD MYALGIA AND MYOSITIS Active Condition DoD tingling (paresthesia) Active Condition DoD INFECTIOUS MONONUCLEOSIS Inactive Condition DoD TONSILLAR HYPERTROPHY Active Condition DoD increased sensitivity to touch or pain (hyperesthesia) [Sx] Active Condition DoD ADJUSTMENT DISORDER WITH ANXIETY AND DEPRESSED MOOD Active Condition DoD ADJUSTMENT DISORDER WITH DEPRESSED MOOD Active Condition DoD visit for: services physical Inactive Condition DoD Need For Vaccination Typhoid Inactive Condition DoD Need For Vaccination Hepatitis A Inactive Condition DoD ADJUSTMENT DISORDER Active Condition DoD NO PSYCHIATRIC DIAGNOSIS OR CONDITION ON AXIS I Inactive Condition DoD visit for: issue medical certificate Inactive Condition DoD NONALLOPATHIC LESIONS RIB CAGE COSTOVERTEBRAL Active Condition DoD lower back pain Active Condition DoD MUSCLE SPASM Inactive Condition DoD URINARY TRACT INFECTION Inactive Condition DoD VERTIGO Inactive Condition DoD ATYPICAL CHEST PAIN Inactive Condition DoD ACROCHORDON Active Condition DoD headache Inactive Condition DoD nausea Inactive Condition DoD visit for: services flight physical Inactive Condition DoD REFRACTIVE ERROR - MYOPIA Active Condition DoD Need For Vaccination Hepatitis A And Hepatitis B Inactive Condition DoD nausea with vomiting Inactive Condition DoD UPPER RESPIRATORY INFECTION Inactive Condition DoD DERMATITIS Inactive Condition DoD cough Active Condition DoD Fever Inactive Condition DoD 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 Inactive Condition DoD CERVICITIS CHLAMYDIA TRACHOMATIS Inactive Condition [facility] visit for: screening exam deficiency anemia Inactive Condition DoD DYSMENORRHEA Active Condition DoD Inquiry And Counseling: Contraceptive Practices Active Condition DoD DIETARY CALCIUM DEFICIENCY Active Condition DoD Need For Vaccination Human Papilloma Virus Inactive Condition DoD Patient Education Inactive Condition DoD Anticipatory Guidance: Unsafe Sexual Practices Inactive Condition DoD Gynecologic Services Contraceptive General Counseling Inactive Condition DoD Dietary Counseling Pertaining To Osteoporosis Inactive Condition DoD visit for: services physical accession Active Condition DoD visit for: ears / hearing exam Active Condition DoD Medications Combined list of outpatient medications from Department of Defense and Veterans Affairs facilities.Medications provided include 1) outpatient medications from the last 15 months, and 2) patient-reported medications. Medication Details Route Status Patient Instructions Prescription Expires Prescription Number Last Dispense Date Ordering Provider Order Date Order Qty Source CHOLECALCIF ANKIT (VIT D3) TAB TAKE 5000UNIT S BY MOUTH EVERY DAY ORAL ACTIVE TATY BURNS NTHIA E 2015 [facility] DULOXETINE HCL CAP NON-VA CAP,EC TAKE 30MG BY MOUTH TWICE A DAY ORAL ACTIVE Torito LOERA YNNMalissa 2016 [facility] ROSUVASTATI N CALCIUM (rosuvastat in calcium), 5 MG, TABLET, ORAL, [employer] 1000 ea. BOTTLE Active [id number] 2023 90 Pharmac y Data Transac tion Service Facilit y SIMPONI (GOLIMUMAB) , 50MG/0.5ML, DISP SYRIN, SUB-Q, [facility], 0.5 ml SYRINGE Cancele d [id number] : 2023 0 Pharmac y Data Transac tion Service Facilit y SPIRONOLACT ONE (spironolac tone), 50 MG, TABLET, ORAL, [facility], 100 ea. BOTTLE Active [id number] 4 2023 90 Pharmac y Data Transac tion Service Facilit y TIZANIDINE HCL 4MG TAB TAKE ONE TABLET BY MOUTH AT BEDTIME NEEDED ORAL ACTIVE Torito LOERA YNNE 2016 [facility] Allergies, Adverse Reactions, Alerts Combined list of allergies from Department of Defense and Veterans Affairs facilities. It does not include entries that were removed or entered in error. Substance Category Reaction Severity Reaction type Status Date Reported Comments Source INDOMETHACIN (INDOMETHACIN ) Drug allergy (disorder) Nausea active 8 [facility] [place] Kiwi Food allergy Swelling (finding) Active One or More A Facilitie s [facility] [employer] KIW[employer] FRUIT Propensity to adverse reactions to food (finding) Swelling active 7 [place]. [place] . [facility] Immunizations Combined list of available immunizations from the Department of Defense and Veterans Affairs facilities. Immunization Series Date Given Administered By Site Reaction Lot Number CVX Code Drug Wafer Mounter Status Comments Source influenza, injectable, quadrivalent, preservative free 2019 BONITA, () Not Given influenza , injectabl e, quadrival ent, preservat kameron free DoD tetanus toxoid, reduced diphtheria toxoid, and acellular pertu is vaccine, adsorbed 1 2017 SERGIO SILVER [id number] [employer] ([facility]) complet ed tetanus toxoid, reduced diphtheri a toxoid, and acellular pertussis vaccine, adsorbed [facility] INFLUENZA, INJECTABLE, QUADRIVALENT, PRESERVATIVE FREE 2017 150 complet ed i got it at [facility] INFLUENZA, INJECTABLE, QUADRIVALENT, PRESERVATIVE FREE 2017 150 complet ed [facility] influenza, injectable, quadrivalent- pf 2017 150 complet ed Result Comment: i got it at [facility] Pharmac y Influenza, injectable, quadrivalent, preservative free 1 2016 MALU ROSE [id number] [employer] ([facility]) complet ed Influenza , injectabl e, quadrival ent, preservat kameron free [facility] HUMAN PAPILLOMA VIRUS, UNSPECIFIED (HISTORICAL) 1 2016 137 complet ed [facility] HPV, unspecified formulation 2016 137 complet ed HPV, unspecifi ed formulati on 12/03/16 Recorded Ambulat ory Pharmac y INFLUENZA (HISTORICAL) 2015 88 complet ed [place] influenza virus vaccine, unspecified 2015 88 complet ed influenza virus vaccine, unspecifi ed 03/09/16 Recorded Ambulat ory Pharmac y Bhutanese Encephalitis vaccine for intramuscular administratio n 1 2015 BOSSMAN ERAZO [id number] 134 Unknown (UNK) complet ed Bhutanese Encephali tis vaccine for intramusc ular administr ation [facility] HUMAN PAPILLOMA VIRUS, UNSPECIFIED (HISTORICAL) 1 2015 137 complet ed [facility] HPV, unspecified formulation 2015 137 complet ed HPV, unspecifi ed formulati on 01/11/16 Recorded Ambulat ory Pharmac y human papilloma virus vaccine, quadrivalent 1 2015 VALENTINO GUIDO [id number] Merck (MSD) complet ed human papilloma virus vaccine, quadrival ent [facility] Influenza, seasonal, injectable, preservative free 0 2014 [id number] 140 Unknown (UNK) complet ed Influenza , seasonal, injectabl e, preservat kameron free [facility] influenza, injectable, quadrivalent, contains preservative 0 2013 [id number] [employer] (MED) complet ed influenza , injectabl e, quadrival ent, contains preservat kameron DoD typhoid Vi capsular polysaccharid e vaccine 1 2012 BOSSMAN BANKS [id number] Sanofi Pasteur (PMC) complet ed typhoid Vi capsular polysacch aride vaccine DoD hepatitis A and hepatitis B vaccine 3 2012 BOSSMAN BANKS [id number] 104 [employer] (SKB) complet ed hepatitis A and hepatitis B vaccine DoD influenza virus vaccine, live, attenuated, for intranasal use 0 2012 Unknown, Provider [id number] [employer]. (MED) complet ed influenza virus vaccine, live, attenuate d, for intranasa l use DoD influenza nasal, unspecified formulation 0 2012 [id number] [employer]. (MED) complet ed influenza nasal, unspecifi ed formulati on DoD TD (ADULT), 2 LF TETANUS TOXOID, PRESERVATIVE FREE, ADSORBED 2012 09 complet ed [facility] tetanus-dipht h toxoids (Td) adult/adol 2012 09 complet ed tetanus-d iphth toxoids (Td) adult/ado l 01/07/13 Recorded Ambulat ory Pharmac y hepatitis A and hepatitis B vaccine 2 2012 MAINOR MIRELES [id number] 104 [employer] (SKB) complet ed hepatitis A and hepatitis B vaccine DoD poliovirus vaccine, inactivated 1 2012 SARAH BLANTON [id number] Sanofi Pasteur (PMC) complet ed polioviru s vaccine, inactivat ed DoD hepatitis A and hepatitis B vaccine 1 2012 SARAH BLANTON [id number] 104 [employer] (SKB) complet ed hepatitis A and hepatitis B vaccine DoD hepatitis A and hepatitis B vaccine 1 2012 LAURA VALENTIN [id number] 104 [employer] (SKB) complet ed hepatitis A and hepatitis B vaccine DoD meningococcal polysaccharid e (groups A, C, Y and W-135) diphtheria toxoid conjugate vaccine (MCV4P) 1 2012 LAURA VALENTIN [id number] Sanofi Pasteur (PMC) complet ed meningoco ccal polysacch aride (groups A, C, Y and W-135) diphtheri a toxoid conjugate vaccine (MCV4P) DoD tetanus toxoid, reduced diphtheria toxoid, and acellular pertu is vaccine, adsorbed 1 2012 BARBIE, LAURA A [id number] [address]AA [address] [place] [address] (SKB) complet ed tetanus toxoid, reduced diphtheri a toxoid, and acellular pertussis vaccine, adsorbed DoD Influenza, seasonal, injectable, preservative free 1 2012 BARBIE, LAURA A [id number] CS [employer] (CSL) complet ed Influenza , seasonal, injectabl e, preservat kameron free DoD Adenovirus, type 4 and type 7, live, oral 1 2012 BARBIE, LAURA A [id number] 143 Other (OTH) complet ed Adenoviru s, type 4 and type 7, live, oral DoD Vital Signs Combined list of inpatient and outpatient Vital Signs from Department of Defense and Veterans Affairs, ranging from 12 months to all on record, depending upon the facility. Vital Sign Value Date Comments Source Systolic Blood Pressure 106 mm[Hg] 11/06/19 18 15:00:16 One or More [facility] Fac[facility] Diastolic Blood Pressure 71 mm[Hg] 11/05/2017 15:00:16 One or More [facility] Systolic Blood Pressure 110 mm[Hg] 04/09/20 17 15:02:04 One or More [facility] Fac[facility] Diastolic Blood Pressure 75 mm[Hg] 04/09/2017 15:02:04 One or More [facility] Fac[facility] Systolic Blood Pressure 121 mm[Hg] 03/09/20 17 12:18:36 One or More [facility] Fac[facility] Diastolic Blood Pressure 72 mm[Hg] 03/09/2017 12:18:36 One or More [facility] Facilities [facility] Systolic Blood Pressure 107 mm[Hg] 10/11/19 17 19:07:54 One or More [facility] Fac[facility] Diastolic Blood Pressure 75 mm[Hg] 10/10/2016 19:07:54 One or More [facility] Facilities [facility] [employer] Systolic Blood Pressure 113 mm[Hg] 04/24/20 16 15:17:21 One or More [facility] Facilities [facility] Diastolic Blood Pressure 75 mm[Hg] 04/24/2016 15:17:21 One or More [facility] Facilities [facility] Encounters Combined list of: 1) Encounters from Department of Veterans Affairs facilities going backup to the last 18 months, not all VA inpatient encounters are included; 2) Encounters from the Department of Defense facilities going backup to 280 months. Location Location Details Encounter Type Encounter Number Reason For Visit Attending Provider ADM Date DC Date Status Disposition Source [facility](Au diology [facility] 1523) OUTPATIENT [id number] MARGAUX STEPHENS 08/26 Released w/o Limitations [facility] Fed [facility]( Audiolo gy [facility] 1523) [facility](Op tometry [facility] 1523) OUTPATIENT [id number] CLIFFORD TREVINO 08/26 Released w/o Limitations [facility] Fed [facility]( Optomet ry [facility] 1523) [facility](Fe male Screening 1523) OUTPATIENT [id number] RAFAEL CLARI COLIN SHAINA 08/29 Released w/o Limitations [facility] Fed [facility]( Female Screeni ng 1523) [facility](We [facility] Female) OUTPATIENT [id number] OMEGA VALLE 08/29 Released w/o Limitations [facility] Fed [facility]( [facility] Female) [facility](We ekend Mil Sick Call 1007) OUTPATIENT [id number] Notes Entered by: KAYLA MATHIAS 01 Oct 2012 0944 ------- ------- ------- ------- -- flu like symptom s/rash JOVANI CAVAZOS 10/01 Sick at Home/Quarter s [facility]( Weekend [facility] Sick Call 1007) [facility](We ekend Mil Sick Call 1007) OUTPATIENT [id number] Notes Entered by: TABATHA ROWLEY 02 Oct 2012 0803 ------- ------- ------- ------- -- follow up JOCELIN BLANCO 10/02 Released w/o Limitations [facility]( Weekend [place] Sick Call 1007) [place] OUTPATIENT [id number] N/V PREG TEST (df) TASNEEM OGLESBY 12/07 Released with Work/Duty Limitations [place] [place] OUTPATIENT [id number] n/v, stomach pains(a nn) TASNEEM OGLESBY 12/12 [place]ased [place] Limitations [place] [place] Medicine [facility]) OUTPATIENT [id number] LATISHA RODARTE 12/28 Released w/o Limitations [place] Flight Medicin e [facility]) [place] Hearing Conservat ion) OUTPATIENT [id number] REF REF 08/17 BM AB TSE 12/28 [place]ased [place] Limitations [place]) [place] Optometry ) OUTPATIENT [id number] DAVID GERMAN 12/28 [place]ased [place] Lim[place] Optomet [place]) [place] Medicine [facility]) OUTPATIENT [id number] F/U LAB RESULTS ROJAS MORGAN 01/10 Released [place] Limitations [place] Flight Medicin e [facility]) [place] [place] [facility] ) OUTPATIENT [id number] REGI NAIK 01/11 [place]ased [place] Lim[place] [facility] Flight Medicine [facility]) OUTPATIENT [id number] Notes Entered by: DONALD HILLS 12 Jan 2013 0941 ------- ------- ------- ------- -- CHEST PAIN / LIGHT HEADNES S PB RIVAS 01/12 Immediate Referral [place] Flight Medic[facility]) OUTPATIENT [id number] ER Follow- Up TIMOTHY COYNE 01/13 [place]ick [place] Home[place] [facility]) OUTPATIENT [id number] Back Pain (acute) ROJAS MORGAN F 03/02 [place] [facility]) OUTPATIENT [id number] LOWER BACK PAIN PB RIVAS 03/09 [place] 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 PB RIVAS 03/28 [place] [facility] Physical Therapy) OUTPATIENT [id number] lower back pain ASHLEY QUEVEDO EDWARD 04/12 [place] OUTPATIENT [id number] 2wk fu back ASHLEY QUEVEDO EDWARD 04/25 [place]) OUTPATIENT [id number] er f/u PB RIVAS 04/25 [place] [facility] OUTPATIENT [id number] 4wk fu back ASHLEY QUEVEDO EDWARD 05/26 [place]) OUTPATIENT [id number] JORDEN BARR 06/14 Released w/o Limitations [facility] [place]ian [place] Medicin [place] Clinic) [place]) OUTPATIENT [id number] CHRONIC BODY PX TIMOTHY COYNE 07/27 Released with Work/Duty Limitations [facility] [place] [facility] [place] [facility] Flight [facility]) OUTPATIENT [id number] E/R F/U ON BODY ACHE TIMOTHY COYNE Mendel 08/01 Sick at Home/Quarter s [facility] [place] [facility] [place], [place]([facility] Flight Medicine [facility]) OUTPATIENT [id number] F/U BODY Px TIMOTHY COYNE Mendel 08/04 Sick at Home/Quarter s [facility] [place] [place], [place](Neurol ogy) OUTPATIENT [id number] Notes Entered by: Eliseo NG 09 Aug 2013 1401 ------- ------- ------- ------- -- Per JOEL Salgado 08/09 Released w/o Limitations [place](Neur [place]logy) [place](Neurol [place]gy) TELE CONSULT [id number] Notes Entered by: Eliseo NG 10 Aug 2013 1135 ------- ------- ------- ------- -- PT would like to discuss side effects of medicin e prescri bed to her JOEL RICHARDS 08/10 [place](Ne[place]y) [place]) OUTPATIENT [id number] Bodyach es Follow- Up TIMOTHY COYNE Mendel 08/11 Released with Work/Duty Limitations [facility] [place] [facility] [place] [facility], [place](Neurol ogy) OUTPATIENT [id number] Notes Entered by: Eliseo NG 11 Aug 2013 1346 ------- ------- ------- ------- -- EMG JOEL RICHARDS 08/11 Released w/o Limitations [facility] [facility] [place] [id number] Notes Entered by: Eliseo NG 17 Aug 2013 1007 ------- ------- ------- ------- -- F/U JOEL RICHARDS 08/17 Released w/o Limitations [facility] [facility] [facility] OUTPATIENT [id number] Notes Entered by: Shanita PARRA 23 Aug 2013 1543 ------- ------- ------- ------- -- New Patient JAROCHO Phillip 08/23 Released w/o Limitations [facility] [facility] [facility] OUT[place]IENT [id number] myalgia s MAINOR BANKS 08/25 Released w/o Limitations [facility] [facility] [facility] [place]) OUT[place] [id number] MAINOR BANKS 08/31 Released w/o Limitations [facility] [facility] [id number] Notes Entered by: TREVOR RENE 01 Sep 2013 1249 ------- ------- ------- ------- -- Per JOEL Rao 09/01 Released w/o Limitations [facility] [facility] [place] [facility] OUT[place]IENT [id number] MAINOR BANKS 09/12 [place]IENT [id number] MAINOR BANKS 09/21 [place] [facility] OUTPATIENT [id number] parfq TIMOTHY COYNE 09/27 Released with Work/Duty Lim[place] [facility] [place] [facility] OUTPATIENT [id number] headach e, nausea, dizzine ss (med re-eval ) ROJAS MORGAN 09/28 [place] [facility] OUTPATIENT [id number] MAINOR BANKS 09/29 [place]ased [place] OUTPATIENT [id number] F/U from Rheumat ologis. ROJAS MORGAN 10/27 [place]ased [place]o [place] [facility] [facility] OUTPATIENT [id number] F/U RHEUMAT OLOGY TIMOTHY COYNE 11/13 [place] [facility] [facility]Ne[place]) OUTPATIENT [id number] follow up JOEL RICHARDS 11/30 [place]ased [place] [facility]) OUTPATIENT [id number] F/U RHEUMAT OLOGY DAVID CARTER 01/25 [place]ased [place] [facility] OUTPATIENT [id number] F/U LABS DAVID CARTER 06/05 [place]ased [place] [facility] OUTPATIENT [id number] LUMP IN GENITAL AREA DAVID CARTER 06/11 [place]ased [place] [facility] OUTPATIENT [id number] PHA/FD LINO NUNEZ 06/22 [place] [facility] Hearing Conservat ion) OUTPATIENT [id number] [facility] AB LEE 06/22 [place] Flight Medicine [facility]) OUTPATIENT [id number] initial well woman/p ap PB RIVAS 07/02 [place] [facility] Optometry ) OUTPATIENT [id number] eye exam MAINOR BROTHERS I 07/10 [place]) OUTPATIENT [id number] F/U MEDS DAVID CARTER 08/14 [place] [facility] TELE CONSULT [id number] DAVID CARTER 08/21 [place] [facility] TELE CONSULT [id number] DAVID CARTER 08/28 [place] Flight Medicine [facility]) OUTPATIENT [id number] WELL PB ZUÑIGA 08/28 [place] TELE CONSULT [id number] Notes Entered by: Jose Manuel BAI 30 Aug 2014 1303 ------- ------- ------- ------- -- NETWORK RHEUMAT OLOGY RESULTS DAVID CARTER 08/30 [place] Medicine [facility]) TELE CONSULT [id number] Notes Entered by: TREVOR FRITZ 04 Sep 2014 1042 ------- ------- ------- ------- -- Rx Refill- Marcial Fam CHRISTOPHE R M 09/04 [place] Flight Medicine [facility]) TELE CONSULT [id number] DAVID CARTER 12/30 [place] [facility] [employer] [place]) OUTPATIENT [id number] f/u BS -fibrom YUSUF Reyes 01/06 Released w/o Limitations [facility] [employer] [place] Flight Medicine [facility]) OUTPATIENT [id number] F/U MENTAL HEALTH DAVID CARTER 01/15 [place] [place] [facility] [employer] OUTPATIENT [id number] GAVIN LANDRY 01/22 [place] OUTPATIENT [id number] PARFQ/P RT VIVIANA MELÉNDEZ 03/28 Released with Work/D[place] [facility] TELE CONSULT [id number] Notes Entered by: CAM ZIMMERMAN 01 Apr 2015 1546 ------- ------- ------- ------- -- Admin closed DILIP MOURA 04/01 [place] Appoint[place] [facility]) [facility] [place] Physical Therapy) OUTPATIENT [id number] CHRONIC PAIN JOCELYN MAINOR R 04/09 [place]) OUTPATIENT [id number] need prescri bed a cane to walk VIVIANA PAULINO 05/03 [place] [facility] OUTPATIENT [id number] Spider bite 1 x days SUNNY KELLY A 06/05 [place] [facility] TELE CONSULT [id number] Notes Entered by: RATNA LUONG 11 Jul 2015 1416 ------- ------- ------- ------- -- Unexecu cari ugarte for Pain Managem ent ref # [id number] VIVIANA [facility]ULINO 07/11 [facility] [facility] [place] Hearing Conservat ion) OUTPATIENT [id number] Notes Entered by: Gris LEE 17 Jul 2015 1442 ------- ------- ------- ------- -- YUDI AGUILLON TO [facility] 46 ROSAJAYROSEYMOURKym Kym 07/17 [facility] Limitations [facility] [place] OUTPATIENT [id number] KAELA KempY SANDRA 07/24 [facility] [place] Limitations [facility] [place] [facility]) [place] OUTPATIENT [id number] Er F/u chest pain re sarmiento/ VIVIANA Marino 08/07 [facility] [place] Limitations [facility] [place] [facility] [place] TELE CONSULT [id number] Notes Entered by: ELVIRA BOSS 03 Sep 2015 1057 ------- ------- ------- ------- -- Cardiac referra DILIP Hook 09/02 [facility] [facility] [place] TELE CONSULT [id number] Notes Entered by: ANTHONY CUENCA 09 Sep 2015 1244 ------- ------- ------- ------- -- NETWORK RESULTS CARDIOL OGY 6 VIVIANA PAULINO 09/08 [facility] [place] TELE CONSULT [id number] Notes Entered by: LIVE SUTTON 10 Sep 2015 1251 ------- ------- ------- ------- -- NETWORK RESULTS CARDIO DOS [id number] VIVIANA PAULINO 09/09 [facility] [place] [facility] [place] OUTPATIENT [id number] f/u for care VIVIANA Walker 09/16 [place]ased [place] [facility]) [facility] [place] [facility] TELE CONSULT [id number] Notes Entered by: LINO LUCIA 18 Sep 2015 1040 ------- ------- ------- ------- -- Request for No Watch CLARI Barbour 09/17 [place] [facility]) [place]) [place] [id number] Other chest pain ANETTE HERNANDEZ 09/22 [place] [facility] [place] TELE CONSULT [id number] Notes Entered by: NEHA SORTO 24 Sep 2015 0826 ------- ------- ------- ------- -- Contact the patient NIYA DAVIS 09/23 [facility] [place] [facility] TELE CONSULT [id number] Notes Entered by: LINO LUCIA 24 Sep 2015 1109 ------- ------- ------- ------- -- ReferVIVIANA Barragan 09/23 [place] [facility] [place]) [facility] [place] [facility] OUTPATIENT [id number] chest pain JUVE LOVING A 09/30 Released with Work/Duty [place] [facility]) [place] [facility] TELE CONSULT [id number] Notes Entered by: LINO LUCIA 07 Oct 2015 1035 ------- ------- ------- ------- -- Referra torito for cardiol ogy visit VIVIANA PAULINO 10/[address] [facility] [place] OUT[place] [id number] Notes Entered by: BEATRICE FREITAS V 08 Oct 2015 1049 ------- ------- ------- ------- -- PAIN MANAGEM ENT BEATRICE FREITAS V 10/07 [place] [facility] TELE CONSULT [id number] Notes Entered by: LINO LUCIA 10 Oct 2015 1452 ------- ------- ------- ------- -- Disable d Parking Chance and Renwed VIVIANA Marshall 10/09 [place]) [place] [id number] JOEL Granados 11/07 [facility] [place] [place]itations [facility] [facility] [place] [facility] TELE CONSULT [id number] Notes Entered by: RUDOLPH ROMERO 08 Nov 2015 1358 ------- ------- ------- ------- -- Contact ed pt to resched ule missed f/u appt MERA DEWITT 11/07 [facility] [place] [facility] [place] [facility] [place] [facility] OUTPATIENT [id number] update VIVIANA Maciel 12/04 [place]ased [place] Work/Duty Limitations [place] [facility] [place]) [place] [id number] Initial poly JOEL RICHARDS 12/12 [facility] [place]itations [facility] [place] [place] TELE CONSULT [id number] Notes Entered by: ELVIRA BOSS 25 Dec 2015 1516 ------- ------- ------- ------- -- Rheumat ology ReferDILIP Varghese 12/24 [place] [facility] [place] OUT[place] [id number] Notes Entered by: RUDOLPH ROMERO 27 Dec 2015 1356 ------- ------- ------- ------- -- Chronic pain f/u MERA DEWITT 12/26 [place] [facility] [place] OUT[place]IENT [id number] lld VIVIANA Maciel 12/30 Released with Work/Duty Limitations [place] [facility] [place] TELE CONSULT [id number] Notes Entered by: JAREN ALTAMIRANO 02 Jan 2016 1115 ------- ------- ------- ------- -- NETWORK REDULTS - RHEUMAT OLOGY 01/01/16 VIVIANA PAULINO 01/01 [place] OUT[place] [id number] [facility] FROM 01/07.... SERVICE ANIMAL/ MEDS VIVIANA PAULINO 01/08 [place]itations [place] [facility] [place] OUT[place] [id number] Notes Entered by: Jaciel ERAZO 15 Jan 2016 1222 ------- ------- ------- ------- -- DAVID ALVAREZ 01/14 [place]itations [place] Hearing Conservat ion) OUTPATIENT [id number] Notes Entered by: Gris LEE 15 Jan 2016 1303 ------- ------- ------- ------- -- AB Wei PE 01/14 Released w/[place] Limitations [facility] [place] OUT[place]IENT [id number] Separat ion VIVIANA Pérez 01/21 Released w/o Limitations [facility] OUTPATIENT [id number] Pas entered the order MERA DEWITT 01/22 Released w/o Limitations [facility] [place] [facility] TELE CONSULT [id number] Notes Entered by: RUDOLPH ROMERO 04 Feb 2016 1309 ------- ------- ------- ------- -- Vitamin D lab results MERA DEWITT 02/03 [place] OUT[place]IENT [id number] VIVIANA PETERSEN 02/06 Released w/o Limitations [facility] [place]) [facility] [place] TELE CONSULT [id number] Notes Entered by: Janeth GALVAN 02 Mar 2016 1517 ------- ------- ------- ------- -- RelayHe alth message from patient IVORY GALVAN 03/02 Other Not Elsewhere Classified [place] [facility] TELE CONSULT [id number] Notes Entered by: ERIN BOLAND 17 Aug 2016 1315 ------- ------- ------- ------- -- Request to speak with nurse of ESTHER Mensah 08/17 [place] [facility] OUTPATIENT [id number] Meet/Gr eet (settin g up [facility] will need referra ls) ISABEL MARCUS 02/23 [place]itations [place] [facility] TELE CONSULT [id number] Notes Entered by: SHAVONNE BRISENO 08 Apr 2017 1120 ------- ------- ------- ------- -- HCG REE ARTEAGA 04/08 [place] Obstetric s) OUTPATIENT [id number] LMP 03/08/17 REE ARTEAGA 04/22 [place]itations [place] [facility] [facility] [facility] TELE CONSULT [id number] Notes Entered by: Yarelis GREGORY 03 May 2017 1000 ------- ------- ------- ------- -- Pain managem ent vs PT referra l GRANT GREGORY 05/03 [place] Appointment [place] [facility] [place]) OUTPATIENT [id number] NOB LMP 05/10/17 CIERA LANDEROS 05/11 [place]/o Limitations [place] OUTPATIENT [id number] kenrick: DECEMBER 15 weeks JOEL ODOM 06/10 Released w/o Limitations [facility] [facility] OUTPATIENT [id number] Notes Entered by: MALU ROSE 14 Jun 2017 1035 ------- ------- ------- ------- -- FLU SHOT MALU ROSE 06/14 Released w/o Limitations [facility] [facility] TELE CONSULT [id number] Notes Entered by: JOSE IZQUIERDO 25 Jun 2017 0942 ------- ------- ------- ------- -- Kym NOLASCO 2873, DOS [id number] NO PCR (ORTHOP EDICS) ISABEL MARCUS 06/25 [facility] [facility] [facility] [facility] OUTPATIENT [id number] kenrick: DECEMBER 19 weeks NIYA GUTIERREZ V 07/01 Released w/o Limitations [facility] [facility]) OUT[place] [id number] KENRICK: wks RIGOBERTO BOBO 08/06 Released w/o Limitations [facility] [facility]) OUT[place] [id number] JAMA MATHIAS 08/14 Released w/o Limitations [facility] [facility]) [place] [id number] KENRICK DEC 20 [email or web address] [email or web address] 08/26 Released w/o Limitations [facility] [facility] [facility] [facility] TELE CONSULT [id number] Notes Entered by: PAUL BHANDARI 01 Sep 2017 1146 ------- ------- ------- ------- -- Rheumat ology Results (Urgent ) SURESH DEVI Kym 09/01 Referred for Appointment [facility] [place] OUTPATIENT [id number] kenrick: DECEMBER 26 weeks JOEL ODOM 09/03 Immediate Referral [place] TELE CONSULT [id number] Notes Entered by: Mendel ODOM 13 Sep 2017 0636 ------- ------- ------- ------- -- F/u TB test JOEL ODOM 09/13 [place](Ob/G yn [facility]) [place]) TELE CONSULT [id number] Notes Entered by: Yarelis GREGORY 28 Sep 2017 1355 ------- ------- ------- ------- -- [facility]- -appoin tment request GRANT GREGORY 09/28 [place] [facility]) OUTPATIENT [id number] KENRICK wMARNIE Seo 10/01 [place]itations [place] Immunizat ion Clinic) OUTPATIENT [id number] Notes Entered by: SERGIO SILVER 01 Oct 2017 1339 ------- ------- ------- ------- -- SERGIO Tompkins 10/01 [place] Limitations [place] Immun[place]ion [place] Case Managemen t) OUTPATIENT [id number] Notes Entered by: LINO LUCIA 12 Oct 2017 1408 ------- ------- ------- ------- -- Case Managem ent Review and Closure LINO LUCIA 10/12 [place] TELE CONSULT [id number] Notes Entered by: JOSE IZQUIERDO 13 Oct 2017 1423 ------- ------- ------- ------- -- Kym NOLASCO 2873, DOS [id number] PHYSICA L ISABEL SIMMONS 10/13 [place] [facility]) OUTPATIENT [id number] f/u fibromy ISABEL King 10/20 [place]ased [place] [facility] [place]) [facility] [place]) OUTPATIENT [id number] kenrick: December weeks CIERA LANDEROS S 10/22 [place]ased [place] [facility] [place] [facility] TELE CONSULT [id number] Notes Entered by: ARMANI EASLEY 26 Oct 2017 0848 ------- ------- ------- ------- -- Prescri ption referen ce. PCM Dr. Marcus. [facility] . [facility]. GRANT GREGORY 10/26 [place]erred [place] Appoint[place] [facility] [place]) [place] [facility]) OUTPATIENT [id number] [email or web address] JAMA Guzman 11/03 [facility]itations [facility] [facility] OUTPATIENT [id number] KENRICK: 10Jun 34wks JOEL ODOM 11/05 [place] Limitations [place] OUTPATIENT [id number] 35wks edc 12/13 ESSIE MANUELAAAKASH WALLACE 11/12 [place]ased w/o Limitations [place] OUTPATIENT [id number] 36wks edc 12/13 CIERA LANDEROS 11/19 [place]ased [place]/o Limitations [place]) OUTPATIENT [id number] KENRICK [id number] 36wks MARNIE BANKS Gris 11/19 [place] Limitations [place] OUTPATIENT [id number] 37wks edc 12/13 CIERA LANDEROS 11/26 [place] Limitations [place] OUTPATIENT [id number] 38wks edc 12/13 CIERA LANDEROS 12/03 [place]ased [place] Limitations [place] DIRECT TO [facility] FROM OTHER THAN ER OR [facility] [id number] RIGOBERTO BOBO 12/04 [place] OUTPATIENT [id number] Notes Entered by: PAUL BHANDARI 10 Dec 2017 1515 ------- ------- ------- ------- -- Post C Section Incisio n CHeck from DECEMBER 20 JONAS MELENDEZ 12/10 [place] Limitations [place]) OUTPATIENT [id number] 6 week pp from 05 DECEMBER CIERA LANDEROS 01/17 [place]ased [place] [facility] TELE CONSULT [id number] Notes Entered by: LETICIA LANG 07 Feb 2018 0948 ------- ------- ------- ------- -- [facility] health- EVA Espinosa 02/07 [place]erred [place] Appointment [place] [facility] [facility] TELE CONSULT [id number] Notes Entered by: FR CAESAR TRAVIS 16 Feb 2018 0933 ------- ------- ------- ------- -- MSG [id number] (Referr al Renewal ...) NI TRAVIS 02/16 Other Not Elsewhere Classified [place] [facility]) OUT[place]IENT [id number] Chronic pain initial MERA DEWITT 03/01 [place] [id number] Family history of maligna nt neoplas m, unspeci fied SHERRI SINGER 03/10 [place] OUTPATIENT [id number] F/U MERA DEWITT 03/24 [place] [facility] TELE CONSULT [id number] Notes Entered by: LINO WAGNER 24 Mar 2018 1211 ------- ------- ------- ------- -- Carmen Marcus / [facility] JAYY EPPERSON 03/24 [place] [facility] [place] [facility] OUTPATIENT [id number] cut on L toe x 3 weeks PASCALE REDDY 04/05 [place]/o Limitations [place] [facility] TELE CONSULT [id number] Notes Entered by: KYLE MALONEY 06 Apr 2018 1058 ------- ------- ------- ------- -- Dalia Postnat al Depress ion [facility] JAYY EPPERSON 04/06 [place] [facility] [place]) [facility] [place] [facility] OUTPATIENT [id number] meet and SHEFALI Richardson 04/19 [facility] Limitations [facility] [facility] [place] [facility] TELE CONSULT [id number] 3 Notes Entered by: MANPREET WILSON 30 May 2018 1553 ------- ------- ------- ------- -- RH:Robb rral renewal PCM: Ashley JAYY EPPERSON 05/30 [place]oint[place] [place] [facility]) [place]November [facility]) TELE CONSULT [id number] Notes Entered by: EVA ESPANA 20 Jun 2018 1542 ------- ------- ------- ------- -- Pt request ing milagro ugarte for rehabil itation SHEFALI Banks 06/20 [place] [facility] [place] [facility] TELE CONSULT [id number] Notes Entered by: EVA ESPANA 22 Jun 2018 1029 ------- ------- ------- ------- -- Pt inquiri ng about her referra l to Brian. PCM EVA Iglesias 06/22 Referred for Appointment [place], [place](November [facility]) [place] TELE CONSULT [id number] Notes Entered by: CALEB LAMBERT 16 Aug 2018 1147 ------- ------- ------- ------- -- NETWORK PHYSICA L THERAPY RESULTS SHEFALI JOHNSON 08/16 [place] TELE CONSULT [id number] Notes Entered by: GONZALO HARDING 23 Sep 2018 0951 ------- ------- ------- ------- -- NETWORK PHYSICA L THERAPY RESULTS SHEFALI JOHNSON 09/23 [place] [facility]) TELE CONSULT [id number] Notes Entered by: CAM ZIMMERMAN 03 Oct 2018 0949 ------- ------- ------- ------- -- Unexecu cari referra l for Pain Managem ent # [id number] SHEFALI JOHNSON 10/03 [place](November [facility]) Procedures Combined list of: 1) Procedures from Department of Veterans Affairs facilities going back up to thelast 18 months, not all VA non-surgical procedures are included; 2) All procedures from the Department of Defense facilities. Procedure Procedure Type Code Date Perfomer Comments [facility] e POLIOVIRUS VACCINE, INACTIVATED (IPV), FOR SUBCUTANEOUS OR INTRAMUSCULAR USE 09/29 [facility] ADENOVIRUS VACCINE, TYPE 7, LIVE, FOR ORAL USE 08/29 [facility] PATIENT EDUCATION, NOT OTHERWISE CLASSIFIED, NON-PHYSICIAN PROVIDER, GROUP, PER SESSION 08/29 [facility] FITTING OF SPECTACLES, EXCEPT FOR APHAKIA; MONOFOCAL 08/26 DoD SKIN TEST; TUBERCULOSIS, INTRADERMAL 08/26 [facility] PURE TONE AUDIOMETRY (THRESHOLD); AIR ONLY 08/26 [facility] COLLECTION OF VENOUS BLOOD BY VENIPUNCTURE 08/25 DoD PSYCHOTHERAPY, 60 MINUTES WITH PATIENT 08/24 DoD PSYCHOTHERAPY, 60 MINUTES WITH PATIENT 08/17 DoD PSYCHOTHERAPY, 60 MINUTES WITH PATIENT 08/10 DoD PSYCHOTHERAPY, 60 MINUTES WITH PATIENT 08/04 DoD FAMILY PSYCHOTHERAPY (CONJOINT PSYCHOTHERAPY) (WITH PATIENT PRESENT), 50 MINUTES 07/27 DoD FAMILY PSYCHOTHERAPY (CONJOINT PSYCHOTHERAPY) (WITH PATIENT PRESENT), 50 MINUTES 07/11 DoD FAMILY PSYCHOTHERAPY (CONJOINT PSYCHOTHERAPY) (WITH PATIENT PRESENT), 50 MINUTES 06/20 DoD FAMILY PSYCHOTHERAPY (CONJOINT PSYCHOTHERAPY) (WITH PATIENT PRESENT), 50 MINUTES 06/06 DoD FAMILY PSYCHOTHERAPY (CONJOINT PSYCHOTHERAPY) (WITH PATIENT PRESENT), 50 MINUTES 05/24 DoD FAMILY PSYCHOTHERAPY (CONJOINT PSYCHOTHERAPY) (WITH PATIENT PRESENT), 50 MINUTES 04/04 DoD MEDICATION THERAPY MGT SERVICE(S) PROVIDED,A PHARMACIST,FELISA,CRISTAL CE-TO-FACE W PATIENT,WITH ASSESS & INTERVENE IF PROVIDED;EA ADDITION 15 MINUTES (LIST SEPARATELY IN ADDITION TO CODE FOR PRIM SERVICE) 03/24 DoD FAMILY PSYCHOTHERAPY (CONJOINT PSYCHOTHERAPY) (WITH PATIENT PRESENT), 50 MINUTES 03/15 DoD EDUCATION &TRAINING, PATIENT SELF-MGT QUALIFIED, NONPHYSICIAN HEALTH RECORDIST USING STDIZED CURRICULUM, JCAD-IF-SBBL W THE PATIENT (COULD INCL CAREGIVER/FAMILY) EA 30 MIN; INDIVIDUAL PATIENT 03/10 DoD MEDICATION THERAPY MGT SERVICE(S) PROVIDED,A PHARMACISTFELISA,CRISTAL CE-TO-FACE W PATIENT,WITH ASSESS & INTERVENE IF PROVIDED;EA ADDITION 15 MINUTES (LIST SEPARATELY IN ADDITION TO CODE FOR PRIM SERVICE) 03/01 DoD PSYCHOTHERAPY, 60 MINUTES WITH PATIENT 03/01 DoD FAMILY PSYCHOTHERAPY (CONJOINT PSYCHOTHERAPY) (WITH PATIENT PRESENT), 50 MINUTES 02/15 DoD FAMILY PSYCHOTHERAPY (CONJOINT PSYCHOTHERAPY) (WITH PATIENT PRESENT), 50 MINUTES 02/09 DoD PSYCHIATRIC DIAGNOSTIC EVALUATION 02/03 DoD PSYCHOTHERAPY, 60 MINUTES WITH PATIENT 01/18 DoD SCREENING PAPANICOLAOU SMEAR; OBTAINING, PREPARING AND CONVEYANCE OF CERVICAL OR VAGINAL SMEAR TO LABORATORY 01/17 DoD EXTRACTION OF PRODUCTS OF CONCEPTION, LOW CERVICAL, OPEN APPROACH 12/06 [facility] POSTOPERATIVE FOLLOW-UP VISIT, NORMALLY INCLUDED IN THE SURGICAL PACKAGE, INDICATE THAT EVALUATION & MANAGEMENT SERVICE WAS PERFORMED DURING A POSTOPERATIVE PERIOD REASON RELATED ORIGINAL PROCEDURE 12/06 [facility] POSTOPERATIVE FOLLOW-UP VISIT, NORMALLY INCLUDED IN THE SURGICAL PACKAGE, INDICATE THAT EVALUATION & MANAGEMENT SERVICE WAS PERFORMED DURING A POSTOPERATIVE PERIOD REASON RELATED ORIGINAL PROCEDURE 12/05 [facility] ANESTHESIA FOR DELIVERY ONLY 12/04 [facility] SUBSEQ CARE VISIT () [EXCLS:PATIENTS WHO ARE SEEN FOR A CONDITION UNREL TO / CARE (EG,AN UP RESPIR INFECT;PATIENTS SEEN FOR CONSULTATION ONLY,NOT FOR CONT CARE)] 12/03 [facility] SUBSEQ CARE VISIT () [EXCLS:PATIENTS WHO ARE SEEN FOR A CONDITION UNREL TO / CARE (EG,AN UP RESPIR INFECT;PATIENTS SEEN FOR CONSULTATION ONLY,NOT FOR CONT CARE)] 11/30 [facility] SUBSEQ CARE VISIT () [EXCLS:PATIENTS WHO ARE SEEN FOR A CONDITION UNREL TO / CARE (EG,AN UP RESPIR INFECT;PATIENTS SEEN FOR CONSULTATION ONLY,NOT FOR CONT CARE)] 11/26 [facility] SUBSEQ CARE VISIT () [EXCLS:PATIENTS WHO ARE SEEN FOR A CONDITION UNREL TO / CARE (EG,AN UP RESPIR INFECT;PATIENTS SEEN FOR CONSULTATION ONLY,NOT FOR CONT CARE)] 11/19 [facility] SUBSEQ CARE VISIT () [EXCLS:PATIENTS WHO ARE SEEN FOR A CONDITION UNREL TO / CARE (EG,AN UP RESPIR INFECT;PATIENTS SEEN FOR CONSULTATION ONLY,NOT FOR CONT CARE)] 11/12 [facility] SUBSEQ CARE VISIT () [EXCLS:PATIENTS WHO ARE SEEN FOR A CONDITION UNREL TO / CARE (EG,AN UP RESPIR INFECT;PATIENTS SEEN FOR CONSULTATION ONLY,NOT FOR CONT CARE)] 11/05 [facility] PARENTING CLASSES, NON-PHYSICIAN PROVIDER, PER SESSION 11/03 [facility] TELE ASSESS & MGT SRV PROV QUAL NONPHYS HLTH CARE PRO TO EST PAT,PARENT,GUARD NOT ORIG REL ASSESS & MGT SRV PROV W/IN PREV 7 DAYS NOR LEAD ASSESS & MGT SRV/PX W/IN NXT 24 HR/SOON APT;5-10 MIN MED DIS 10/26 [facility] PSYCHOTHERAPY, 60 MINUTES WITH PATIENT 10/25 [facility] SUBSEQ CARE VISIT () [EXCLS:PATIENTS WHO ARE SEEN FOR A CONDITION UNREL TO / CARE (EG,AN UP RESPIR INFECT;PATIENTS SEEN FOR CONSULTATION ONLY,NOT FOR CONT CARE)] 10/22 [facility] CASE MANAGEMENT, EACH 15 MINUTES 10/12 DoD IMMUNIZATION ADMINISTRATION (INCLUDES PERCUTANEOUS, INTRADERMAL, SUBCUTANEOUS, OR INTRAMUSCULAR INJECTIONS); 1 VACCINE (SINGLE OR COMBINATION VACCINE/TOXOID) 10/01 DoD SUBSEQ CARE VISIT () [EXCLS:PATIENTS WHO ARE SEEN FOR A CONDITION UNREL TO / CARE (EG,AN UP RESPIR INFECT;PATIENTS SEEN FOR CONSULTATION ONLY,NOT FOR CONT CARE)] 10/01 [facility] TELE ASSESS & MGT SRV PROV QUAL NONPHYS HLTH CARE PRO TO EST PAT,PARENT,GUARD NOT ORIG REL ASSESS & MGT SRV PROV W/IN PREV 7 DAYS NOR LEAD ASSESS & MGT SRV/PX W/IN NXT 24 HR/SOON APT;5-10 MIN MED DIS 09/28 DoD SUBSEQ CARE VISIT () [EXCLS:PATIENTS WHO ARE SEEN FOR A CONDITION UNREL TO / CARE (EG,AN UP RESPIR INFECT;PATIENTS SEEN FOR CONSULTATION ONLY,NOT FOR CONT CARE)] 09/03 DoD PSYCHOTHERAPY, 60 MINUTES WITH PATIENT 08/27 DoD CLASSES, NON-PHYSICIAN PROVIDER, PER SESSION 08/25 DoD CHILDBIRTH PREPARATION/LAMAZE CLASSES, NON-PHYSICIAN PROVIDER, PER SESSION 08/14 DoD PSYCHOTHERAPY, 60 MINUTES WITH PATIENT 08/12 DoD SUBSEQ CARE VISIT () [EXCLS:PATIENTS WHO ARE SEEN FOR A CONDITION UNREL TO / CARE (EG,AN UP RESPIR INFECT;PATIENTS SEEN FOR CONSULTATION ONLY,NOT FOR CONT CARE)] 08/06 DoD PSYCHOTHERAPY, 60 MINUTES WITH PATIENT 07/28 DoD PSYCHOTHERAPY, 60 MINUTES WITH PATIENT 07/15 DoD SUBSEQ CARE VISIT () [EXCLS:PATIENTS WHO ARE SEEN FOR A CONDITION UNREL TO / CARE (EG,AN UP RESPIR INFECT;PATIENTS SEEN FOR CONSULTATION ONLY,NOT FOR CONT CARE)] 07/08 DoD IMMUNIZATION ADMINISTRATION (INCLUDES PERCUTANEOUS, INTRADERMAL, SUBCUTANEOUS, OR INTRAMUSCULAR INJECTIONS); 1 VACCINE (SINGLE OR COMBINATION VACCINE/TOXOID) 06/14 DoD PSYCHOTHERAPY, 60 MINUTES WITH PATIENT 06/10 DoD PSYCHOTHERAPY, 60 MINUTES WITH PATIENT 05/17 DoD INITIAL CARE VISIT (REPORT AT 1ST ENCOUN W HEALTH RECORDIST PROVIDING OBSTETRIC CARE. REPORT ALSO DATE OF VISIT &,IN A SEPARATE FIELD,THE DATE OF THE LAST MENSTRUAL PERIOD) 05/11 DoD CASE MANAGEMENT, EACH 15 MINUTES 05/03 [facility] TELE ASSESS & MGT SRV PROV QUAL NONPHYS HLTH CARE PRO TO EST PAT,PARENT,GUARD NOT ORIG REL ASSESS & MGT SRV PROV W/IN PREV 7 DAYS NOR LEAD ASSESS & MGT SRV/PX W/IN NXT 24 HR/SOON APT;5-10 MIN MED DIS 05/03 DoD PSYCHOTHERAPY, 60 MINUTES WITH PATIENT 04/30 DoD CASE MANAGEMENT, EACH 15 MINUTES 04/22 DoD EDUCATIONAL SUPPLIES, SUCH BOOKS, TAPES, AND PAMPHLETS, FOR THE PATIENT'S EDUCATION AT COST TO PHYSICIAN OR OTHER QUALIFIED HEALTH RECORDIST 04/22 DoD CASE MANAGEMENT, EACH 15 MINUTES 04/21 DoD PSYCHOTHERAPY, 60 MINUTES WITH PATIENT 04/19 DoD CASE MANAGEMENT, EACH 15 MINUTES 04/07 DoD PSYCHOTHERAPY, 60 MINUTES WITH PATIENT 03/05 DoD CASE MANAGEMENT, EACH 15 MINUTES 03/03 DoD PSYCHOTHERAPY, 60 MINUTES WITH PATIENT 02/05 DoD PSYCHOTHERAPY, 60 MINUTES WITH PATIENT 01/26 DoD MEDICATION THERAPY MGT SERVICE(S) PROVIDED,A PHARMACIST,INDIV,FA CE-TO-FACE W PATIENT,WITH ASSESS & INTERVENE IF PROVIDED;EA ADDITION 15 MINUTES (LIST SEPARATELY IN ADDITION TO CODE FOR PRIM SERVICE) 01/22 DoD PSYCHOTHERAPY, 30 MINUTES WITH PATIENT 01/22 DoD PSYCHOTHERAPY, 60 MINUTES WITH PATIENT 01/15 DoD PURE TONE AUDIOMETRY (THRESHOLD); AIR ONLY 01/14 [facility] IMMUNIZATION ADMINISTRATION (INCLUDES PERCUTANEOUS, INTRADERMAL, SUBCUTANEOUS, OR INTRAMUSCULAR INJECTIONS); 1 VACCINE (SINGLE OR COMBINATION VACCINE/TOXOID) 01/14 DoD PSYCHOTHERAPY, 60 MINUTES WITH PATIENT 01/08 DoD PSYCHOTHERAPY, 60 MINUTES WITH PATIENT 12/29 DoD PSYCHOTHERAPY, 60 MINUTES WITH PATIENT 12/22 DoD COORDINATED CARE FEE, MAINTENANCE RATE 12/17 DoD PSYCHOTHERAPY, 60 MINUTES WITH PATIENT 12/15 DoD POLYSOMNOGRAPHY; AGE 6 YEARS OR OLDER, SLEEP STAGING WITH 4 OR MORE ADDITIONAL PARAMETERS OF SLEEP, ATTENDED BY A TECHNOLOGIST 12/11 DoD COORDINATED CARE FEE, MAINTENANCE RATE 12/05 DoD INFUSION, NORMAL SALINE SOLUTION , 1000 CC 12/04 DoD PSYCHOTHERAPY, 60 MINUTES WITH PATIENT 11/07 DoD COORDINATED CARE FEE, MAINTENANCE RATE 11/04 DoD COORDINATED CARE FEE, MAINTENANCE RATE 10/29 DoD PSYCHOTHERAPY, 60 MINUTES WITH PATIENT 10/21 DoD COORDINATED CARE FEE, MAINTENANCE RATE 10/16 DoD PSYCHOTHERAPY, 60 MINUTES WITH PATIENT 10/15 DoD COORDINATED CARE FEE, MAINTENANCE RATE 10/09 DoD MEDICATION THERAPY MGT SERVICE(S) PROVIDED,A PHARMACIST,INDIV,FA CE-TO-FACE W PATIENT,WITH ASSESS & INTERVENE IF PROVIDED;EA ADDITION 15 MINUTES (LIST SEPARATELY IN ADDITION TO CODE FOR PRIM SERVICE) 10/07 DoD PSYCHOTHERAPY, 60 MINUTES WITH PATIENT 10/03 DoD COORDINATED CARE FEE, MAINTENANCE RATE 10/01 DoD COORDINATED CARE FEE, MAINTENANCE RATE 09/23 [facility] ELECTROCARDIOGRAM, ROUTINE ECG WITH AT LEAST 12 LEADS; WITH INTERPRETATION AND REPORT 09/22 DoD COORDINATED CARE FEE, MAINTENANCE RATE 09/17 [facility] PSYCHIATRIC DIAGNOSTIC EVALUATION 09/10 DoD COORDINATED CARE FEE, MAINTENANCE RATE 09/09 DoD PSYCHOTHERAPY FOR CRISIS; FIRST 60 MINUTES 08/23 DoD COORDINATED CARE FEE, MAINTENANCE RATE 08/23 DoD COORDINATED CARE FEE, MAINTENANCE RATE 08/22 DoD COORDINATED CARE FEE, MAINTENANCE RATE 08/20 DoD INFUSION, NORMAL SALINE SOLUTION , 1000 CC 08/12 DoD COORDINATED CARE FEE, MAINTENANCE RATE 08/09 DoD INFUSION, NORMAL SALINE SOLUTION , 1000 CC 07/29 [facility] IMMUNIZATION ADMINISTRATION (INCLUDES PERCUTANEOUS, INTRADERMAL, SUBCUTANEOUS, OR INTRAMUSCULAR INJECTIONS); 1 VACCINE (SINGLE OR COMBINATION VACCINE/TOXOID) 07/24 [facility] PURE TONE AUDIOMETRY (THRESHOLD); AIR ONLY 07/17 [facility] SELF-CARE/HOME MANAGMENT TRAIN (EG,ACT OF DAILY LIVING (ADL) &COMPENSAT TRAIN,MEAL PREPARATION,SAFETY PROCS,AND INSTRUCT IN USE OF ASST TECHNOLOGY DEV/ADPT EQUIP) DIR ONE-ON-ONE CONT,EA 15 MINUTES 04/09 DoD COORDINATED CARE FEE, MAINTENANCE RATE 04/01 DoD COORDINATED CARE FEE, MAINTENANCE RATE 03/12 DoD COORDINATED CARE FEE, MAINTENANCE RATE 02/25 DoD COORDINATED CARE FEE, MAINTENANCE RATE 02/07 DoD PSYCHOTHERAPY, 60 MINUTES WITH PATIENT 01/31 DoD COORDINATED CARE FEE, MAINTENANCE RATE 01/30 DoD PSYCHIATRIC DIAGNOSTIC EVALUATION 01/24 DoD COORDINATED CARE FEE, MAINTENANCE RATE 01/15 [facility] UNLISTED PSYCHIATRIC SERVICE OR PROCEDURE 01/14 [facility] INJECTION, HYDROMORPHONE, UP TO 4 MG 01/12 DoD COORDINATED CARE FEE, MAINTENANCE RATE 01/10 [facility] PRESCRIPTION OF OPTICAL AND PHYSICAL CHARACTERISTICS OF CONTACT LENS, WITH MEDICAL SUPERVISION OF ADAPTATION & DIRECTION OF FIT BY INDEPENDENT TECH;CORNEAL LENS, BOTH EYES, EXCEPT FOR APHAKIA 07/10 [facility] AUDIOMETRIC TESTING OF GROUPS 06/22 [facility] PHYSICAL THERAPY RE-EVALUATION 09/29 DoD THERAPEUTIC PROCEDURE, 1 OR MORE AREAS, EACH 15 MINUTES; THERAPEUTIC EXERCISES TO DEVELOP STRENGTH AND ENDURANCE, RANGE OF MOTION AND FLEXIBILITY 09/21 DoD THERAPEUTIC PROCEDURE, 1 OR MORE AREAS, EACH 15 MINUTES; THERAPEUTIC EXERCISES TO DEVELOP STRENGTH AND ENDURANCE, RANGE OF MOTION AND FLEXIBILITY 09/12 [facility] GROUP PSYCHOTHERAPY (OTHER THAN OF A MULTIPLE-FAMILY GROUP) 09/06 [facility] APPLICATION OF A MODALITY TO 1 OR MORE AREAS; HOT OR COLD PACKS 08/31 DoD THERAPEUTIC PROCEDURE, 1 OR MORE AREAS, EACH 15 MINUTES; THERAPEUTIC EXERCISES TO DEVELOP STRENGTH AND ENDURANCE, RANGE OF MOTION AND FLEXIBILITY 08/25 DoD COORDINATED CARE FEE, MAINTENANCE RATE 08/23 DoD PSYCHOTHERAPY, 45 MINUTES WITH PATIENT 08/23 DoD PSYCHOLOGICAL TSTING (INCL PSYCHODIAG ASSESSMNT, EMOTITY, INTELLECTUAL ABILITIES, PERSONALITY &PSYCHOPATHOLOGY, EG, MMPI), ADMINISTERED COMPUTER, W QUALIFIED HEALTH RECORDIST INTERPRET &RPT 08/18 DoD INFUSION, NORMAL SALINE SOLUTION , 1000 CC 08/15 DoD PSYCHOTHERAPY, 45 MINUTES WITH PATIENT 08/14 DoD NERVE CONDUCTION STUDIES; 5-6 STUDIES 08/11 DoD PSYCHOTHERAPY, 45 MINUTES WITH PATIENT 08/07 DoD PSYCHOTHERAPY, 45 MINUTES WITH PATIENT 07/26 DoD PSYCHOTHERAPY, 45 MINUTES WITH PATIENT 07/18 DoD PSYCHOTHERAPY, 45 MINUTES WITH PATIENT 07/11 DoD PSYCHOTHERAPY, 45 MINUTES WITH PATIENT 06/21 DoD IMMUNIZATION ADMINISTRATION (INCLUDES PERCUTANEOUS, INTRADERMAL, SUBCUTANEOUS, OR INTRAMUSCULAR INJECTIONS); EACH ADDITIONAL VACCINE (SINGLE OR COMBINATION VACCINE/TOXOID) 06/14 DoD PSYCHOTHERAPY, 45 MINUTES WITH PATIENT 06/13 DoD PSYCHIATRIC DIAGNOSTIC EVALUATION 05/26 [facility] PHYSICAL THERAPY RE-EVALUATION 05/26 [facility] MANUAL THERAPY TECHNIQUES (EG, MOBILIZATION/ MANIPULATION, MANUAL LYMPHATIC DRAINAGE, MANUAL TRACTION), 1 OR MORE REGIONS, EACH 15 MINUTES 04/25 [facility] MANUAL THERAPY TECHNIQUES (EG, MOBILIZATION/ MANIPULATION, MANUAL LYMPHATIC DRAINAGE, MANUAL TRACTION), 1 OR MORE REGIONS, EACH 15 MINUTES 04/12 [facility] REMOVAL OF SKIN TAGS, MULTIPLE FIBROCUTANEOUS TAGS, ANY AREA; UP TO AND INCLUDING 15 LESIONS 01/11 [facility] FITTING OF SPECTACLES, EXCEPT FOR APHAKIA; MONOFOCAL 12/28 [facility] IMMUNIZATION ADMINISTRATION (INCLUDES PERCUTANEOUS, INTRADERMAL, SUBCUTANEOUS, OR INTRAMUSCULAR INJECTIONS); 1 VACCINE (SINGLE OR COMBINATION VACCINE/TOXOID) 12/28 [facility] INTRAVENOUS INFUSION, HYDRATION; EACH ADDITIONAL HOUR (LIST SEPARATELY IN ADDITION TO CODE FOR PRIMARY PROCEDURE) 07/02 [facility] Immunization Administration One Vaccine Immunization Administration One Vaccine 10849 12/28 LATISHA OROPEZA [facility] Patient education, not otherwise cla ified, non-physician provider, group, per se ion 08/29 SHIRAZ PEREZ [facility] Spectacles Services Fitting Monofocals (Not For Aphakia) [facility] Fitting Monofocals (Not For Aphakia) 02349 08/26 CLIFFORD TREVINO [facility] Visual Function Screening Visual Function Screening 49275 08/26 CLIFFORD TREVINO [facility] Threshold Audiogram (Pure Tone) Threshold Audiogram (Pure Tone) 16322 08/26 MARGAUX STEPHENS [facility] Audiometry Group Testing Audiometry Group Testing 94331 08/26 MARGAUX STEPHENS. [facility] Coordinated care fee, maintenance rate 11/05 LINO LUCIA DoD Case Management, each 15 minutes 11/05 LINO LUCIA Coordinated care fee, maintenance rate 10/31 LINO LUCIA DoD Case Management, each 15 minutes 10/31 LINO LUCIA Coordinated care fee, maintenance rate 10/16 LINO LUCIA Case Management, each 15 minutes 10/16 LINO LUCIA Coordinated care fee, maintenance rate 10/09 LINO LUCIA DoD Case Management, each 15 minutes 10/09 GEORGETTE LUCIAWN L [facility] Medication Management By Pharmacist Each Additional 15 Min Medication Management By Pharmacist Each Additional 15 Min 61802 10/07 BEATRICE FREITAS V [facility] Med Management By Pharmacist Initial 15 Min New Patient Med Management By Pharmacist Initial 15 Min New Patient [id number] 10/07 BEATRICE FREITAS V [facility] Coordinated care fee, maintenance rate 10/03 FORSLILA PATINON L DoD Case Management, each 15 minutes 10/03 FORSMANLILAN L DoD Coordinated care fee, maintenance rate 09/23 FORSMAN, LINO L DoD Case Management, each 15 minutes 09/23 FORSMAN, LINO L [facility] Electrocardiogram Electrocardiogram 32382 09/22 ANETTE HERNANDEZ [facility] Coordinated care fee, maintenance rate 09/18 FORSMAN, LINO L [facility] Case Management, each 15 minutes 09/18 FORSMAN, LINO L [facility] Coordinated care fee, maintenance rate 09/11 FORSMANLILAN L [facility] Case Management, each 15 minutes 09/11 FORSMAN, LINO L [facility] Psychiatric Evaluation Psychiatric Evaluation 22395 09/10 ANTHONY ISAAC [facility] Coordinated care fee, maintenance rate 08/23 FORSMAN, LINO L DoD Case Management, each 15 minutes 08/23 FORSMAN, LINO L [facility] Coordinated care fee, maintenance rate 08/22 FORSMAN, LINO L DoD Case Management, each 15 minutes 08/22 FORSMAN, LINO L DoD Coordinated care fee, maintenance rate 08/20 FORSMAN, LINO L DoD Case Management, each 15 minutes 08/20 FORSMAN, LINO L DoD Coordinated care fee, maintenance rate 08/12 FORSMAN, LINO L DoD Case Management, each 15 minutes 08/12 IVANMANGEORGETTEWN L [facility] Human Papilloma Virus Vaccine, Quadrivalent Human Papilloma Virus Vaccine, Quadrivalent 94353 07/24 CONSUELO LUNDBERG HPV, quadrivalent; Series #: 1; .5 mL; IM; Left Arm; g: [facility]; Lot: [id number]. DoD Immunization Administration One Vaccine Immunization Administration One Vaccine 53077 07/24 CONSUELO LUNDBERG [facility] Threshold Audiogram (Pure Tone) Threshold Audiogram (Pure Tone) 83559 07/17 AB LEE Phys Therapy Education Self Care Training - Per 15 Minutes Phys Therapy Education Self Care Training - Per 15 Minutes 87508 04/09 [facility]OR [facility] Physical Medicine Physical Therapy Evaluation Physical Medicine Physical Therapy Evaluation 33812 04/09 [facility]KS Coordinated care fee, maintenance rate 04/03 FORSLINO PATINO L [facility] Case Management, each 15 minutes 04/03 FORSMAN, LINO L [facility] Coordinated care fee, maintenance rate 03/12 FORSMAN, LINO L [facility] Case Management, each 15 minutes 03/12 FORSMAN, LINO L [facility] Coordinated care fee, maintenance rate 02/26 FORSMAN, LINO L [facility] Case Management, each 15 minutes 02/26 FORSCAREY, LINO L [facility] Coordinated care fee, maintenance rate 02/08 FORSGEORGETTE PATINOWN L [facility] Case Management, each 15 minutes 02/08 FORSMAN, LINO L [facility] Coordinated care fee, maintenance rate 01/30 FORSMAN, LINO L [facility] Case Management, each 15 minutes 01/30 FORSMAN, LINO L [facility] Coordinated care fee, maintenance rate 01/15 FORSMAN, LINO L [facility] Case Management, each 15 minutes 01/15 GEORGETTE LUCIAWN L [facility] Crisis Intervention Therapy Crisis Intervention Therapy 56770 01/14 SAGAR JACK Coordinated care fee, maintenance rate 01/11 FORSGEORGETTE PATINOWN L [facility] Case Management, each 15 minutes 01/11 GEORGETTE LUCIAWN L [facility] Prescribe & Direct Fitting Corneal Lenses (Not For Aphakia) Prescribe & Direct Fitting Corneal Lenses (Not For Aphakia) 62899 07/10 MAINOR BROTHERS [facility] Services Fitting Monofocals (Not For Aphakia) [facility] Fitting Monofocals (Not For Aphakia) 05970 07/10 MAINOR BROTHERS Determination Of Refractive State Determination Of Refractive State 15493 07/10 MAINOR BROTHERS Ophthalmological Prior Patient Start Comprehensive Care Ophthalmological Prior Patient Start Comprehensive Care 86473 07/10 MAINOR BROTHERS I [facility] Audiometry Group Testing Audiometry Group Testing 04772 06/22 AB LEE [facility] Physical Medicine Physical Therapy Re-Evaluation Physical Medicine Physical Therapy Re-Evaluation 19433 09/29 MAINOR BANKS [facility] Modalities Cryotherapy Cold Packs Modalities Cryotherapy Cold Packs 53314 09/21 MAINOR BANKS [facility] Physical Therapy: ___ Se ion Segments, 15 Minutes Each Physical Therapy: ___ Session Segments, 15 Minutes Each 00088 09/21 MAINOR BANKS [facility] Physical Therapy: ___ Se ion Segments, 15 Minutes Each Physical Therapy: ___ Session Segments, 15 Minutes Each 31135 09/12 MAINOR BANKS [facility] Psychiatric Therapy Group (Interactive) Psychiatric Therapy Group (Interactive) 96402 09/06 CAROL CAMERON [facility] Modalities Cryotherapy Cold Packs Modalities Cryotherapy Cold Packs 37487 08/31 MAINOR BANKS [facility] Physical Therapy: ___ Se ion Segments, 15 Minutes Each Physical Therapy: ___ Session Segments, 15 Minutes Each 62206 08/31 MAINOR BANKS [facility] Physical Therapy: ___ Se ion Segments, 15 Minutes Each Physical Therapy: ___ Session Segments, 15 Minutes Each 23386 08/25 MAINOR BANKS x10 min Pt educated on HEP HO, prognosis, diagnosis, and POC. [facility] Physical Medicine Physical Therapy Evaluation Physical Medicine Physical Therapy Evaluation 29531 08/25 MAINOR BANKS x20 min STG 1 week: Will be (I) with HEP. LTG 3 weeks: Improve MONICA to <34%. Increase sitting tolerance to >30 minutes. Improve lumbar ext AROM to >75%. [facility] Coordinated care fee, maintenance rate 08/23 JAROCHO PARRA [facility] Case Management, each 15 minutes 08/23 JAROCHO PARRA 15 mins [facility] Psychologic Testing And Report Administered By Computer Psychologic Testing And Report Administered By Computer 50877 08/22 DORIE FRANCISCO [facility] Psychiatric Therapy Individual Approximately 45-50 Minutes 07/28 BETH XAVIER [facility] Psychiatric Therapy Individual Approximately 45-50 Minutes 07/19 BETH XAVIER [facility] Psychiatric Therapy Individual Approximately 45-50 Minutes 07/12 BETH XAVIER [facility] Psychiatric Therapy Individual Approximately 45-50 Minutes 06/22 BETH XAVIER [facility] Typhoid Vaccine Vi Capsular Polysaccharide, For Intramus Use Typhoid Vaccine Vi Capsular Polysaccharide, For Intramus Use 46072 06/14 [place]EN [place] Typhoid, ViCPs; Series #: 1; .5 mL; IM; Left Arm; Mfg: [employer]; Lot: [id number]. [facility] Hepatitis A And Hepatitis B (Intramuscular Use) Adult Dosage Hepatitis A And Hepatitis B (Intramuscular Use) Adult Dosage 81295 06/14 [place] Hep A - Hep B (Twinrix); Series #: 3; 1.0 mL; IM; Left Arm; Mfg: [employer]; Lot: [id number]. [facility] Immunization Administration One Vaccine Immunization Administration One Vaccine 23853 06/14 JORDEN HILLS [facility] Immunization Administration Each Additional Vaccine Immunization Administration Each Additional Vaccine 87704 06/14 JOREDN HILLS [facility] Psychiatric Therapy Individual Approximately 45-50 Minutes 06/14 BETH XAVIER [facility] Psychiatric Evaluation Comprehensive Examination Psychiatric Evaluation Comprehensive Examination 38880 05/29 BETH XAVIER [facility] Physical Medicine Physical Therapy Re-Evaluation Physical Medicine Physical Therapy Re-Evaluation 24015 05/26 ASHLEY QUEVEDO x 10 min IN 3 weeks DoD Mobilization Soft Ti ue Mobilization Soft Tissue 56970 04/25 ASHLEY QUEVEDO x 8 min L side up QL release good tolerance DoD Physical Therapy Mobilization Joint Physical Therapy Mobilization Joint 89276 04/25 ASHLEY QUEVEDO x 10 min Prone Unilateral down glide PA mob grade III-IV good tolerance and relief Performed at T7-8-9 [facility] Physical Medicine Physical Therapy Re-Evaluation Physical Medicine Physical Therapy Re-Evaluation 44532 04/25 ASHLEY QUEVEDO x 10 min In 2 weeks NO pn with BB or SBL - Spring test T spine Oswestry <6/10 DoD Mobilization Soft Ti ue Mobilization Soft Tissue 32969 04/12 ASHLEY QUEVEDO x 10 min paraspinal and QL DTM/release fair tolerance no pn post tx. [facility] Physical Therapy Mobilization Joint Physical Therapy Mobilization Joint 21162 04/12 ASHLEY QUEVEDO x 10 min L side up grade III-IV cavitation relief DoD Exercises A isted Exercises For ROM Exercises Assisted Exercises For ROM 20330 04/12 ASHLEY QUEVEDO x 8 min HEP instruction and practice with HO provided [facility] Physical Therapy Evaluation Physical Medicine Physical Therapy Evaluation 28151 04/12 ASHLEY QUEVEDO x 20 min IN 2-3 weeks no pn with T spine ext, rib spring test, or spasm [facility] Skin Tag Removal Up To 15 Lesions Skin Tag Removal Up To 15 Lesions 96941 01/11 REGI ALMEIDA [facility] Fitting Monofocals (Not For Aphakia) [facility] Fitting Monofocals (Not For Aphakia) 09490 12/28 BOSSMAN MUÑOZ Determination Of Refractive State Determination Of Refractive State 76082 12/28 BOSSMAN MUÑOZ Ophthalmological New Patient Start Comprehensive Care Ophthalmological New Patient Start Comprehensive Care 12772 12/28 BOSSMAN MUÑOZ Prescribe & Direct Fitting Corneal Lenses (Not For Aphakia) Prescribe & Direct Fitting Corneal Lenses (Not For Aphakia) 94358 12/28 BOSSMAN MUÑOZ Hepatitis A And Hepatitis B (Intramuscular Use) Adult Dosage Hepatitis A And Hepatitis B (Intramuscular Use) Adult Dosage 71552 12/28 LATISHA OROPEZA Hep A - Hep B (Twinrix); Series #: 2; 1.0 mL; IM; Left Arm; Mfg: [employer]; Lot: [id number]. [facility] Psychiatric Therapy Family (Conjoint) Psychiatric Therapy Family (Conjoint) 60815 07/27 ANTHONY ISAAC [facility] Psych[facility] Therapy Family (Conjoint) Psychiatric Therapy Family (Conjoint) 99243 07/11 ANTHONY ISAAC [facility] Psychiatric Therapy Family (Conjoint) Psychiatric Therapy Family (Conjoint) 01895 06/20 ANTHONY ISAAC Psychiatric Therapy Family (Conjoint) Psychiatric Therapy Family (Conjoint) 54008 06/06 ANTHONY ISAAC [facility] Psychiatric Therapy Family (Conjoint) Psychiatric Therapy Family (Conjoint) 27515 05/24 ANTHONY ISAAC Psychiatric Therapy Family (Conjoint) Psychiatric Therapy Family (Conjoint) 83672 04/04 ANTHONY ISAAC Medication Management By Pharmacist Each Additional 15 Min Medication Management By Pharmacist Each Additional 15 Min 59557 03/24 PARVIN DEWITTA Jose Elena Med Management By Pharmacist Initial 15 Min Estab Patient Med Management By Pharmacist Initial 15 Min Estab Patient 46446 03/24 ESDRAS MERA Y Kassy [facility] Family (Conjoint) Psychiatric Therapy Family (Conjoint) 30938 03/15 ANTHONY ISAAC Patient Counseling Medical Management Individual Patient Patient Counseling Medical Management Individual Patient 84833 03/10 SHERRI ALSTON Medication Management By Pharmacist Each Additional 15 Min Medication Management By Pharmacist Each Additional 15 Min 69868 03/01 PARVIN DEWITTA Jose Elena Med Management By Pharmacist Initial 15 Min New Patient Med Management By Pharmacist Initial 15 Min New Patient 07248 03/01 ESDRAS MERA Y [facility] Psychiatric Therapy Family (Conjoint) Psychiatric Therapy Family (Conjoint) 78609 02/15 ANTHONY ISAAC Psychiatric Therapy Family (Conjoint) Psychiatric Therapy Family (Conjoint) 44645 02/09 ANTHONY ISAAC Psychiatric Evaluation Psychiatric Evaluation 27420 02/08 SONJA PARMAR [facility] Obstetrical Services Care Visit Obstetrical Services Care Visit 0503F 01/22 CIERA LANDEROS Screening papanicolaou smear; obtaining, preparing and conveyance of cervical or vaginal smear to laboratory 01/22 CIERA LANDEROS [facility] Ultrasound Obstetric Limited Evaluation Ultrasound Obstetric Limited Evaluation 58871 12/03 BLAKE CALIX OB Services Antepartum Care Only Subsequent Single Visit OB Services Antepartum Care Only Subsequent Single Visit 0502F 12/03 BLAKE CALIX Non-Stre Test (___ 0,2) Non-Stress Test (___ 0,2) 89631 12/03 BLAKE CALIX OB Services Antepartum Care Only Subsequent Single Visit OB Services Antepartum Care Only Subsequent Single Visit 0502F 11/26 CIERA LANDEROS S [facility] Ultrasound Obstetric Limited Evaluation Ultrasound Obstetric Limited Evaluation 6519011/26 CIERA LANDEROS S [facility] Non-Stre Test (___ 0,2) Non-Stress Test (___ 0,2) 48103 11/26 CIERA LANDEROS [facility] OB Services Antepartum Care Only Subsequent Single Visit OB Services Antepartum Care Only Subsequent Single Visit 0502F 11/19 MARNIE BANKS [facility] Non-Stre Test (___ 0,2) Non-Stress Test (___ 0,2) 30506 11/19 WILL, AJ HAMILTONREY [facility] Ultrasound Obstetric Limited Evaluation Ultrasound Obstetric Limited Evaluation 6209711/19 WILLAJ [facility] OB Services Antepartum Care Only Subsequent Single Visit OB Services Antepartum Care Only Subsequent Single Visit 05011/12 BLAKE CALIX Ultrasound Obstetric Limited Evaluation Ultrasound Obstetric Limited Evaluation 6148911/12 BLAKE CALIX Non-Stre Test (___ 0,2) Non-Stress Test (___ 0,2) 76886 11/12 BLAKE CALIX OB Services Antepartum Care Only Subsequent Single Visit OB Services Antepartum Care Only Subsequent Single Visit 05011/05 JOEL ODOM [facility] -Supervised Services Provision Of Educational Supplies -Supervised Services Provision Of Educational Supplies 86562 11/04 JAMA DEVI [facility] Parenting cla es, non-physician provider, per se ion 11/04 JAMA DEVI [facility] Non-Physician Phone Call To Patient/Provider Brief (5-10min) Non-Physician Phone Call To Patient/Provider Brief (5-10min) 69168 11/01 GRANT GREGORY [facility] OB Services Antepartum Care Only Subsequent Single Visit OB Services Antepartum Care Only Subsequent Single Visit 0502F 10/22 CIERA LANDEROS S [facility] Coordinated care fee, maintenance rate 10/12 LINO LUCIA [facility] Case Management, each 15 minutes 10/12 LINO LUCIA [facility] OB Services Antepartum Care Only Subsequent Single Visit OB Services Antepartum Care Only Subsequent Single Visit 0502F 10/02 MARNIE BANKS [facility] Tdap Vaccine Tdap Vaccine 96481 10/01 SERGIO SILVER Tdap; Series #: 1; .5 mL; IM; Left Arm; Mfg: [employer]; Lot: [id number]; VIS given (Virgil: 08/28/14). [facility] Immunization Administration One Vaccine Immunization Administration One Vaccine 95203 10/01 SERGIO SILVER [facility] Non-Physician Phone Call To Patient/Provider Brief (5-10min) Non-Physician Phone Call To Patient/Provider Brief (5-10min) 07860 09/28 GRANT GREGORY cla es, non-physician provider, per se ion 08/[address]Supervised Services Provision Of Educational Supplies -Supervised Services Provision Of Educational Supplies 29473 08/[address]Supervised Services Provision Of Educational Supplies -Supervised Services Provision Of Educational Supplies 12727 08/27 JAMA DEVI [facility] Childbirth preparation/Lamaze cla es, non-physician provider, per se ion 08/27 JAMA DEVI [facility] OB Services Antepartum Care Only Subsequent Single Visit OB Services Antepartum Care Only Subsequent Single Visit 0502F 07/11 NIYA GUTIERREZ V [facility] Immunization Administration One Vaccine Immunization Administration One Vaccine 33811 06/14 MALU ROSE [facility] Ultrasound [place] [address] 05/11 CIERA LANDEROS [facility] OB Services Antepartum Care Only First Visit, With Report OB Services Antepartum Care Only First Visit, With Report 0500F 05/11 CIERA LANDEROS Coordinated care fee, maintenance rate 05/05 LINO LUCIA Case Management, each 15 minutes 05/05 LINO LUCIA Non-Physician Phone Call To Patient/Provider Brief (5-10min) Non-Physician Phone Call To Patient/Provider Brief (5-10min) 59147 05/03 GRANT GREGORY Coordinated care fee, maintenance rate 04/23 LINO LUCIA Case Management, each 15 minutes 04/[address]Supervised Services Provision Of Educational Supplies -Supervised Services Provision Of Educational Supplies 90638 04/22 REE ARTEAGA [facility] Weight management cla es, non-physician provider, per se ion 04/22 REE ARTEAGA [facility] Exercise cla es, non-physician provider, per se ion 04/22 REE ARTEAGA [facility] Nutrition cla es, non-physician provider, per se ion 04/22 REE ARTEAGA [facility] care, at-risk enhanced service; education 04/22 REE ARTEAGA [facility] Coordinated care fee, maintenance rate 04/22 LINO LUCIA Case Management, each 15 minutes 04/22 LINO LUCIA Coordinated care fee, maintenance rate 04/07 LINO LUCIA Case Management, each 15 minutes 04/07 LINO LUCIA Coordinated care fee, maintenance rate 03/03 LINO LUCIA Case Management, each 15 minutes 03/03 LINO LUCIA Medication Management By Pharmacist Each Additional 15 Min Medication Management By Pharmacist Each Additional 15 Min 72237 01/22 MERA DEWITT Med Management By Pharmacist Initial 15 Min Estab Patient Med Management By Pharmacist Initial 15 Min Estab Patient 61211 01/22 MERA DEWITT [facility] Psychiat Ther Indiv Interactive Approximately 20-30 Minutes 01/22 ANTHONY ISAAC [facility] Threshold Audiogram (Pure Tone) Threshold Audiogram (Pure Tone) 73563 01/14 AB LEE [facility] Vaccines Viral Bhutanese Encephalitis Inactivated, Intramuscular Vaccines Viral Bhutanese Encephalitis Inactivated, Intramuscular 92729 01/14 BOSSMAN ERAZO Bhutanese Encephalitis IM; Series #: 1; .5 mL; IM; Right Arm; Mfg: Unknown; Lot: [id number]; VIS given (Virgil: 07/28/13). [facility] Immunization Administration One Vaccine Immunization Administration One Vaccine 08886 01/14 BOSSMAN ERAZO [facility] Coordinated care fee, maintenance rate 12/17 LINO LUCIA Case Management, each 15 minutes 12/17 LINO LUCIA Coordinated care fee, maintenance rate 12/05 LINO LUCIA Case Management, each 15 minutes 12/05 LINO LUCIA [facility] No data available for this section Ambulato ry Pharmacy Social History Combined list of available smoking, tobacco, and other social history from [facility] Defense and [facility] facilities. Social History Type Response Date Comment Sourc e Sex Representation Female (finding) 08/03/2023 Unknown Organization Tobacco smoking status NHIS LIFETIME NON-TOBACCO USER 10/07/[address] History of tobacco use LIFETIME NON-TOBACCO USER 04/09/2017 [facility] History of tobacco use LIFETIME NON-TOBACCO USER 03/09/2017 [facility] History of tobacco use LIFETIME NON-USER OF TOBACCO 04/24/2016 [facility] This section is an empty social history section. [facility] Sexual Orientation Ambula tory Pharmacy Gender identity Ambulator y Pharmacy Assessment and Plan Combined list of future care activities from [facility] of Defense and Veterans Affairs facilities (e.g., assessment and plan notes, appointments, orders, and referrals). Additional future care activities may be listed in the Plan of Care section. Result Assessment and Plan Date Source Assessment and Plan No data available for this section 11/17/2024 Ambulatory Pharmacy Advance Directives List of completed, amended, or rescinded Advance Directives on record at Department of Veterans Affairs facilities. An actual copy of the Directive is not included. Date Advance Directive Provider Source 11/05/2017 ADVANCE DIRECTIVE DISCUSSION GERRI LIMNO [address] Functional Status Combined list of recent functional and cognitive assessments recorded at [facility] [place] Functional [place] Measurement (FIM) Scale: 1 = Total Assistance (Subject = 0% +), 2 = Maximal Assistance (Subject = 25% +), 3 = Moderate Assistance (Subject = 50% +), 4 = Minimal Assistance (Subject = 75% +), 5 = Supervision, 6 = Modified [place] (Device), 7 = Complete [place] (Timely, Safely). Assessment Date/Time Source Assessment Type Assessment Skill Assessment Score Assessment Details No data available for this section
--- OUTSIDE RECORDS SUMMARY | 2024-11-17 06:49 | XMS_ITS | Encounter Summary ---
Author Organization [facility] Address [address] [place] [address] Care Team Providers Care Manager Logistic Name Role Phone Unavailable Primary Care Provider Unavailabl e Reason for Visit * Reason Comments Forms Physician's Certific ation for Job Accomodation Encounter Details Date Type Department Care Team (Late st Contact Info) Description 10/12/2024 Telephone Rheumatology at [address] 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 Jonna Mazariegos RN [facility] Specialty- Rheumatology * Anayeli Morales MD - 10/13/2024 12:05 PM CDT Form filled and given to staff to be mailed * Sara Zeng - 10/12/2024 3:31 PM CDT Pt returned call and gave her FYI dr would call back tomorrow. * Anayeli Morales MD - 10/12/2024 2:58 PM CDT Called patient and left a voicemail for call back. Need to get more information for the forms. We will try to call and talk to her tomorrow around 12 to discuss. * Jocelyn Denton MA - 10/12/2024 2:29 PM CDT Form dropped off in clinic from patient. Provider reviewed and filled out. Patient calling to verify diagnosis on form. I told her Psoriatic Arthritis. She states she wants all diagnosis from our clinic added. Specifically Rheumatoid Arthritis. I will give forms to provider to let her determine appropriateness. Jocelyn Denton MA 10/12/2024, 2:31 PM documented in this encounter Plan of Treatment Upcoming Encounters Date Type Department Care Team (Late st Contact Info) Description 12/06/2024 10:00 AM CDT Appointment [facility] IV Infusion Therapy [address] [place] [address] documented as of this encounter Visit Diagnoses Not on filedocumented in this encounter
--- OUTSIDE RECORDS SUMMARY | 2024-11-17 06:49 | XMS_ITS | Encounter Summary ---
Author Organization [facility] Address [address] [place] [id number] Care Team Providers Care Environmental Projects Advisor Name Role Phone Unavailable Primary Care Provider Unavailabl e Encounter Details Date Type Department Care Team ([facility] Contact Info) Description 10/11/2024 Results Follow-Up Rheumatology at 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 Legal Sex Female 4:26 PM CDT Gender Identity Female 06/04/2024 12:13 PM PICCOLO MECHANIC Sexual Orientation Straight 06/04/2024 12 :13 PM PICCOLO MECHANIC documented as of this encounter Plan of Treatment Upcoming Encounters Date Type Department Care Team ([facility] Contact Info) Description 12/06/2024 10:00 AM CDT Appointment [facility] 401 IV Infusion Therapy [address] [place] [id number] documented as of this encounter Results * FERRITIN (10/10/2024 1:47 PM CDT) Ferritin 17 9 - 204 ng/mL 10/11/2024 8:56 AM CDT [facility] Blood IV Start / Unknown 1:47 PM CDT 10/10/2024 2:24 PM CDT us Anayeli Morales MD LAB_1 Final Result Performing Organization Address City/[facility]/ZIP Co de Phone Number [facility] [address] * (ABNORMAL) IRON PROFILE (IRON,TIBC,%SAT.(CALC)) (10/10/2024 1:47 PM CDT) Iron 47(L) 50 - 170 mcg/dL 10/11/2024 10:09 AM CDT [facility] Transferrin 406(H) 180 - 382 mg/dL 10/11/2024 10:09 AM CDT [facility] TIBC, Calculated 508(H) 240 - 450 mcg/dL 10/11/2024 10:09 AM CDT [facility] % Saturation, Calculated 9(L) 10 - 50 % 10/11/2024 10:09 AM CDT [facility] TIBC Interpretation Pattern of iron deficiency . 10/11/2024 10:09 AM CDT [facility] Blood IV Start / Unknown 1:47 PM CDT 10/10/2024 2:24 PM CDT us Anayeli Morales MD LAB_1 Final Result Performing Organization Address City/[facility]/ZIP Co de Phone Number [facility] [address] documented in this encounter Visit Diagnoses Diagnosis Anemia, unspecified type- Primary documented in this encounter
--- OUTSIDE RECORDS SUMMARY | 2024-11-17 06:49 | XMS_ITS | Encounter Summary ---
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 [address] Phone: tel: fax: Referral ID Status Reason Start Date Expiration Date V isits Requested Visits Authorized [id number] Authorized 04/14/2024 01/11/2025 99 99 Encounter Details Date Type Department Care Team (Late st Contact Info) Description 10/10/2024 1:45 PM CDT Office Visit [facility] IV Infusion Therapy [address] [place] [address] Psoriatic arthritis (HRC) (Primary Dx); Anemia, unspecified type Social History Tobacco Use Types Packs/Day Years Used Date Smoking Tobacco: Never Assessed Comments Unknown Sex and Gender Information Value Date Recorded Sex Assigned at Female 06/04/2024 12:13 PM REGULATORY ANALYST Legal Sex Female 4:26 PM CDT Gender Identity Female 06/04/2024 12:13 PM REGULATORY ANALYST Sexual Orientation Straight 06/04/2024 12 :13 PM REGULATORY ANALYST documented as of this encounter Last Filed Vital Signs Vital Sign Reading Time Taken Comments Blood Pressure 91/62 10/10/2024 3:40 PM CDT Pulse 84 10/10/2024 3:40 PM CDT Temperature 36.2 C (97.2 F) 10/10/2024 1:38 PM CDT Respiratory Rate - - Oxygen Saturation - - Inhaled Oxygen Concentration - - Weight 68.9 kg (152 lb) 10/10/2024 1:38 PM CDT Height - - Body Mass Index - - documented in this encounter Progress Notes * Radha Parmar RN - 10/10/2024 1:45 PM CDT Is this the first dose: NO- second dose History of previous infusion reactions? YES (see first infusion note) Vascular Access: See IV Flowsheet. Infusion pre meds: Pre meds given in clinic. See orders. Renflexis (Infliximab-abda) in 250 cc's 0.9% normal saline was initiated via infusion pump. Renflexis (infliximab-abda) = 20 cc/hr x 15 minutes = 5 cc, 40 cc/hr x 15 minutes = 10 cc, 80 cc/hrx 15 minutes = 20 cc, 150 cc/hr x 30 minutes = 75 cc, 250 cc/hr for remainder of infusion. Infusion started at 1353 Infusion completed at 1553 Outcomes Tolerated infusion WITHOUT side effects. See Catheter IV flow sheet. Plan After Visit Summary given to patient: NO Patient received medication guide: Va Jenkins RN documented in this encounter Plan of Treatment Upcoming Encounters Date Type Department Care Team (Late st Contact Info) Description 12/06/2024 10:00 AM CDT Appointment [facility] IV Infusion Therapy [address] [place] [address] documented as of this encounter Procedures Procedure Name Priority Date/Time Associated Diagnosis Comments CBC WITH DIFFERENTIAL REVIEW Routine 10/10/2024 1:47 PM CDT Psoriatic arthritis (HRC) COMPREHENSIVE METABOLIC PANEL Routine 10/10/2024 1:47 PM CDT Psoriatic arthritis (HRC) FERRITIN Routine 10/10/2024 1:47 PM CDT Anemia, unspecified type C-REACTIVE PROTEIN Routine 10/10/2024 1: 47 PM CDT Psoriatic arthritis (HRC) IRON PROFILE (IRON,TIBC,%SAT.(CALC) ) Routine 10/10/2024 1:47 PM CDT Anemia, unspecified type SEDIMENTATION RATE (ESR) Routine 10/10/2024 1:47 PM CDT Psoriatic arthritis (HRC) documented in this encounter Results * (ABNORMAL) IRON PROFILE (IRON,TIBC,%SAT.(CALC)) (10/10/2024 1:47 PM CDT) Iron 47(L) 50 - 170 mcg/dL 10/11/2024 10:09 AM CDT [facility] Transferrin 406(H) 180 - 382 mg/dL 10/11/2024 10:09 AM CDT [facility] TIBC, Calculated 508(H) 240 - 450 mcg/dL 10/11/2024 10:09 AM CDT [facility] % Saturation, Calculated 9(L) 10 - 50 % 10/11/2024 10:09 AM CDT [facility] TIBC Interpretation Pattern of iron deficiency . 10/11/2024 10:09 AM CDT [facility] Blood IV Start / Unknown 1:47 PM CDT 10/10/2024 2:24 PM CDT Anayeli Morales MD LAB_1 Final Result [facility] [address] * FERRITIN (10/10/2024 1:47 PM CDT) Ferritin 17 9 - 204 ng/mL 10/11/2024 8:56 AM CDT [facility] Blood IV Start / Unknown 1:47 PM CDT 10/10/2024 2:24 PM CDT Anayeli Coronel Andrew GRAMAJO LAB_1 Final Result [facility] [address] [place] [address], [facility] * (ABNORMAL) CBC with Differential Review (10/10/2024 1:47 PM CDT) Hematology Review 10/10/2024 6:03 PM [facility] WBC 5.9 3.5 - 10.5 x10(9)/L 10/10/2024 6:03 PM [facility] RBC 4.30 3.90 - 5.03 x10(12)/L 10/10/2024 6:03 PM [facility] Hemoglobin 10.9(L) 12.0 - 15.5 g/dL 10/10/2024 6:03 PM [facility] HCT 34.1(L) 34.9 - 44.5 % 10/10/2024 6:03 PM [facility] MCV 79.3(L) 80.0 - 100.0 fL 10/10/2024 6:03 PM [facility] MCH 25.3(L) 27.6 - 33.3 pg 10/10/2024 6:03 PM [facility] MCHC 32.0 31.5 - 35.2 g/dL 10/10/2024 6:03 PM [facility] RDW 15.0 11.9 - 15.5 % 10/10/2024 6:03 PM [facility] Platelets 305 150 - 450 x10(9)/L 10/10/2024 6:03 PM [facility] Automated NRBC 0 <=0 /100 WBC 10/10/2024 6:03 PM [facility] Neutrophil Absolute 3.2 1.7 - 7.0 10(9)/L 10/10/2024 6:03 PM [facility] Lymphocyte Absolute 2.3 1.0 - 4.8 10(9)/L 10/10/2024 6:03 PM CDT [facility] Monocyte Absolute 0.3 0.2 - 0.9 10(9)/L 10/10/2024 6:03 PM CDT [facility] Eosinophil Absolute 0.1 0.0 - 0.5 10(9)/L 10/10/2024 6:03 PM CDT [facility] Basophil Absolute 0.0 0.0 - 0.3 10(9)/L 10/10/2024 6:03 PM CDT [facility] Immature Granulocyte % 0.3 0.0 - 0.5 % 10/10/2024 6:03 PM CDT [facility] Immature Granulocyte Absolute 0.0 <=0.0 10(9)/L 10/10/2024 6:03 PM CDT [facility] Blood Venipuncture / Unknown 10/10/2024 1:47 PM CDT 10/10/2024 2:54 PM CDT Anayeli Morales MD LAB_1 Final Result [address] * C-Reactive Protein (every 3 months) (10/10/2024 1:47 PM CDT) C-Reactive Protein <0.1 0.0 - 0.5 mg/dL 10/10/2024 9:19 PM CDT [facility] Blood IV Start / Unknown 1:47 PM CDT 10/10/2024 2:24 PM CDT Anayeli Morales MD LAB_1 Final Result [facility] [address] [place] [address], [facility] * Sedimentation Rate (ESR) (10/10/2024 1:47 PM CDT) Sedimentation Rate 8 0 - 20 mm/hr 10/10/2024 3:54 PM CDT [facility] Blood IV Start / Unknown 1:47 PM CDT 10/10/2024 2:24 PM CDT us Anayeli Coronel Andrew GRAMAJO LAB_1 Final Result [address] [address], [facility] * (ABNORMAL) Comprehensive Metabolic Panel (10/10/2024 1:47 PM CDT) Sodium 137 136 - 145 mmol/L 10/10/2024 9:19 PM T [facility] Potassium 3.6 3.5 - 5.1 mmol/L 10/10/2024 9:19 PM T [facility] Chloride 106 98 - 109 mmol/L 10/10/2024 9:19 PM T [facility] CO2 19(L) 20 - 29 mmol/L 10/10/2024 9:19 PM T [facility] Anion Gap 12 6 - 16 mmol/L 10/10/2024 9:19 PM T [facility] Calcium 9.4 8.4 - 10.4 mg/dL 10/10/2024 9:19 PM T [facility] BUN 8 7 - 26 mg/dL 10/10/2024 9:19 PM T [facility] Creatinine 0.57 0.55 - 1.02 mg/dL 10/10/2024 9:19 PM T [facility] Alkaline Phosphatase 79 40 - 150 U/L 10/10/2024 9:19 PM [facility] AST (SGOT) 30 10 - 40 U/L 10/10/2024 9:19 PM T [facility] ALT (SGPT) 24 0 - 55 U/L 10/10/2024 9:19 PM [facility] Bilirubin, Total 0.4 0.2 - 1.2 mg/dL 10/10/2024 9:19 PM T [facility] Protein, Total 7.6 6.4 - 8.3 g/dL 10/10/2024 9:19 PM T [facility] Albumin 4.3 3.5 - 5.0 g/dL 10/10/2024 9:19 PM CDT [facility] Glucose 106(H) 70 - 100 mg/dL 10/10/2024 9:19 PM CDT [facility] Comment:The given reference range is for the fasting state. Non-fasting reference range for glucose is 70 - 180 mg/dL. GFR, Estimated >60 >60 mL/min/1. 73m2 10/10/2024 9:19 PM CDT [facility] Hours Fasting 0.1 8 - 12 Hours 10/10/2024 9:19 PM T [facility] Blood IV Start / Unknown 1:47 PM CDT 10/10/2024 2:24 PM CDT Anayeli Morales MD LAB_1 Final Result [facility] [address] documented in this encounter Visit Diagnoses Diagnosis Psoriatic arthritis (HRC)- Primary Psoriatic arthropathy Anemia, unspecified type documented in this encounter Administered Medications Inactive Administered Medications - up to 3 most recent administrations Medication Order MAR Action Action Date Dose Rate Site acetaminophen (TYLENOL) tablet 975 mg 975 mg, Oral, ONCE, On Wed10/10/24 at 1400, For 1 doseIndications:Psoriatic arthritis (HRC) Given 10/10/2024 1:43 PM CDT 975 mg diphenhydrAMINE (BENADRYL) capsule 50 mg 50 mg, Oral, ONCE, On Wed10/10/24 at 1400, For 1 doseIndications:Psoriatic arthritis (HRC) Given 10/10/2024 1:44 PM CDT 50 mg inFLIXimab-abda (RENFLEXIS) 200 mg in sodium chloride 0.9 % 270 mL IVPB 200 mg (rounded from 206.7 mg = 3 mg/kg 68.9 kg), Intravenous, Administer over 2 Hours, ONCE, On Wed10/10/24 at 1400, For 1 dose, Week 6 dose Infuse VIA in-line filter.Indications:Psoriatic arthritis (HRC) Started 10/10/2024 1:53 PM CDT 200 mg methylPREDNISolone sodium succinate PF (SOLU-Medrol) injection 40 mg 40 mg, Intravenous, ONCE, On Wed10/10/24 at 1400, For 1 doseIndications:Psoriatic arthritis (HRC) Given 10/10/2024 1:51 PM CDT 40 mg documented in this encounter
[2024-11-17 06:50] LABS: HCG Qualitative Serum* Negative (Negative)
--- OUTSIDE RECORDS SUMMARY | 2024-11-17 06:50 | XMS_ITS | Clinical Summary ---
Author Organization [facility] Address [address] [place] [address] Care Team Providers Care Dried Fruit Washer Name Role Phone Sandrita Lees MD Primary Care Provider [phone] Allergies Active Allergy Reactions Criticality Noted Date Comments Indomethacin Nausea Only 04/06/2018 Sulfasalazine Nausea And Vomiting 03/13/2024 patient had several reactions Medications spironolactone (ALDACTONE) 50 mg tabletIndications:A cne, unspecified acne type Take 1 Tablet (50 mg) by mouth once daily. 90 Tablet 2 4 Active ondansetron (ZOFRAN ODT) 8 mg disintegrating tabletIndications:N ausea and vomiting, unspecified vomiting type Place 1 Tablet (8 mg) on the tongue every 8 hours if needed for Nausea/Vomit ing. 20 Tablet 1 5 Active sertraline 25 mg tabletIndications:P TSD (post-traumatic stress disorder) Take 1 Tablet (25 mg) by mouth once daily in the morning. 90 Tablet 5 Active folic acid 1 mg tabletIndications:C hronic GERD Take 1 Tablet (1 mg) by mouth once daily. 90 Tablet 3 5 Active esomeprazole delayed release capsule 20 mgIndications:Chron ic GERD Take 1 Capsule (20 mg) by mouth once daily before a meal. 90 Capsule 1 5 Active Active Problems Problem Noted Date Diagnosed Date Diarrhea 07/12/2024 Elevated fecal calprotectin 07/12/2024 Fibromyalgia 04/13/2024 Psoriatic arthritis 04/13/2024 Chronic GERD 04/13/2024 Acne 04/13/2024 PTSD (post-traumatic stress disorder) 04/13/2024 Dyslipidemia 04/13/2024 Severe diarrhea 04/13/2024 Iron deficiency anemia 04/13/2024 Hypovitaminosis D 04/13/2024 Ankylosing spondylitis 09/30/2018 Resolved Problems Problem Noted Date Diagnosed Date Resolved Date Rheumatoid arthritis 04/13/202405/18/2 024 Encounters Date Type Department Care Team Description 10/06/2024 Refill [facility] [id number] [place] [phone] Sandrita Lees MD Refill Request (FOLIC ACID TABS 1 MG, ESOMEPRAZOLE MAGNESIUM DR CAPS 20 MG/) 10/02/2024 Refill [facility] [address] [place] [phone] Sandrita Lees MD Refill Request (ESOMEPRAZOLE MAGNESIUM DR CAPS ) 10/01/[address] [place] [phone] Sandrita Lees MD Refill Request (Sertraline) from Last 3 Months Immunizations Immunization Administration Dates Next Due Adenovirus Type 4 and 7 08/29/2012 HepA-HepB (Twinrix) 06/14/2013, 3,09/29/2012,08/29 Human Papilloma Virus Vaccine 07/24/2015 Human Papilloma Virus Vaccin e, Unspecified 12/03/2016,01/11/2016,11/18/2012 INFLUENZA, IIV3 PF (AGE >= 6 MO) 04/13/2024 Inactivated Polio Vaccine 09/29/2012 Influenza Nasal, Unspecified Formulation 04/13/2013 Influenza Virus, Unspecified 03/09/2016 Influenza, IIV3 (Age >=3 years) 05/03/2015,08/29 Influenza, IIV4 07/07/2017, 8,06/14/2017,05/21 Influenza,LAIV4 Live Intrana sundeep (Flumist) 04/13/2013 Yi Encephalitis 01/15/2016,07/28/2013 Meningococcal Vaccine (Menactra) 08/29/2012 Td (Age >=7 Years) 01/07/2013 Tdap 10/01/2017,08/28/2014,08/29/2012 Typhoid (injectable) 06/14/2013 Family History Medical History Relation Name Comments Anesthesia Problem No Family History Blood Disease No Family History Clotting disorder No Family History Social History Tobacco Use Types Packs/Day Years Used Date Smoking Tobacco: Some Days Cigars Smokeless Tobacco: Never Tobacco Cessation:Ready to Q uit: Not Asked; Counseling Given: Not Answered Comments:Very minimal Alcohol Use Standard Drinks/Week Comments Yes 0 (1 standard drink = 0.6 oz pur e alcohol) rarely PHQ-2 Answer Date Recorded PHQ-2 TOTAL SCORE 2 05/18/2024 Social Connections Answer Date Recorded Do you often feel lonely or isolated from those around you? 4 04/08/2024 Financial Resource Strain Answer Date R ecorded Difficulty of Paying Living Expenses 3 03/13/2024 Difficulty of Paying Living Expenses Not on file 03/13/2024 Food Insecurity Answer Date Recorded Do you worry your food will run out before you are able to buy more? 1 04/08/2024 Transportation Needs Answer Date Record ed Does lack of transportation keep you from medica l appointments? 1 04/08/2024 Does lack of transportation keep you from work, meetings or getting things that you need? 1 04/08/2024 Housing Stability Answer Date Recorded What is your housing situation today? 1 04/08/2024 Utilities Answer Date Recorded Do you have trouble paying f or utilities (for example, heat, electricity, water, phone)? 1 04/08/2024 Comments No Sex and Gender Information Value Date Recorded Sex Assigned at Not on file Legal Sex Female 12:47 PM CDT Gender Identity Not on file Sexual Orientation Not on file Obstetrics History Last Filed Vital Signs Vital Sign Reading Time Taken Comments Blood Pressure 103/66 07/12/2024 10:57 AM MODEL [employer] SALES GREETER Pulse 67 07/12/2024 10:57 AM MODEL [employer] SAL[employer] GREETER Temperature 36.1 C (97 F) 07/12/2024 9:10 AM MODEL [employer] SAL[employer] GREETER Respiratory Rate 16 07/12/2024 10:57 AM MODEL HOME SALES GREETER Oxygen Saturation 97% 07/12/2024 10:57 AM MODEL HOME SALES GREETER Inhaled Oxygen Concentration - - Weight 70 kg (154 lb 4.8 oz) 07/12/2024 9:10 AM MODEL HOME SALES GREETER Height 157.5 cm (5' 2) 07/12/2024 9:10 AM MODEL HOME SALES GREETER Body Mass Index 28.22 07/12/2024 9:10 AM MODEL HOME SALES GREETER Plan of Treatment Upcoming Encounters Date Type Department Care Team (Late st Contact Info) Description 12/12/2024 3:15 PM CDT Office Visit [facility] [address] [place] [phone] [place] [address] [place], [place] [phone] Health Maintenance Due Date Last Done Comments HIV for age 15-65 2007 Hepatitis C screening for ag e 18-79 2010 Pneumococcal series for age 6-49 (1 of 2 - PCV) 2011 COVID-19 vaccine series (2023- season) 2024 Depression screening for age 12+ 05/18/2025 05/18/20 24 BMI (ht and wt on same day) for age 18+ 05/23/2025 05/23/2024, 05/18/2024, 04/13/2024, Additional history exists Pap test for age 21-65 05/26/2025 (Verified in Care Everywhere or Patient Record) Tetanus booster 10/02/2027 10/01/2017, 08/06, 01/07/2013, Additional history exists Tdap Completed 10/01/2017, 08/06, 08/29/2012 Influenza Vaccine Completed 04/13/2024, , 07/05/2017, Additional history exists Insurance [facility] Advance Directives * Full Code (Latest Code Status on File) Date Activated Date Inactivated Comments 07/12/2024 9:13 AM 07/12/2024 1:28 PM Question Answer Comments Code Status Discussion: Unable to Assess Preferences, Provider to review later Care Teams Dried Fruit Washer Relationship Specialty Start [place] [address] [place] [address] PCP - General Family Practice 04/13/24
--- OUTSIDE RECORDS SUMMARY | 2024-11-17 06:50 | XMS_ITS ---
Author Organization [facility] Address [address] [place] [address] Care Team Providers Care Impregnator Operator Name Role Phone Radha Guillermo Primary Care Provider REASON FOR VISIT yd/3 month follow up/flc Encounters Encounter Location Date Provider Diagnosis [facility] [address] [place] [address] 01/27/2024 Radha Guillermo Plan Of Treatment No Information Progress Notes * Yessica NOLASCO ADOB:1990 (34 yo F)Acc No.[id number]:01/27/2024 Progress Notes Patient: eYssica JENKINS Provider: Jose GUILLERMO MD :1990 A ge:33 Y S ex:Female Date:01/27/2024 [id number] Subjective: * Chief Complaints: * 1 . Yd/3 month follow up/flc. * Medical History: Objective: * Vitals: Assessment: Plan: * Treatment: * Billing Information: * Visit Code: * Procedure Codes: * Electronic signature of Radha Guillermo MD on 11/17/2024 at 06:49 AM CDT Sign off status: Pending * Provider: Jose GUILLERMO MD Date: 01/27/2024 Generated for Fernandez ivan/Fasaurabhg/eTransmitting on: 11/17/2024 06:49 AM CDT
--- OUTSIDE RECORDS SUMMARY | 2024-11-17 06:50 | XMS_ITS ---
Author Organization [facility] Address [address] [place] [address] Care Team Providers Care Rod Hanger Name Role Phone Radha Ram Primary Care Provider [phone] REASON FOR VISIT referral Encounters Encounter Location Date Provider Diagnosis [facility] [address] [place] [address] 04/05/2024 Radha Ram Plan Of Treatment No Information Progress Notes * Yessica NOLASCO ADOB:1990 (33 yo F)Acc No.[id number]:04/05/2024 Patient: Jose Manuel BROWNE Yessica Mejía :1990 A ge:33 Y S ex:Female [address] [place], [address] * true * Date: Generated for Fernandez ivan/North/eTransmitting on: 0 11/17/2024 06:49 AM CDT
--- NOTE | 2024-11-17 10:34 | PM.GSCN ---
History of Present Illness Consult details Date Seen: 11/17/24 Consult date: 11/17/24 Narrative: 34-year-old female presented to emergency room overnight with abdominal pain. Patient states that her abdominal pain was epigastric and started all of a sudden at midnight. The pain was severe and worse with movement. She had multiple episodes of vomiting and presented to emergency room. In the emergency room she states that the pain continued to be epigastric and migrated to right lower quadrant. When patient was riding in the car and going over the bumps, the pain was most severe. I personally reviewed her workup in the emergency room. She was found to have elevated WBC of 16. An abdominal CT was obtained that showed dilated appendix with the appendicolith at the base of the appendix. There was no significant inflammation around the appendix and no evidence of an abscess. There is no dilated loops of small large intestine. Patient is on infliximab every 8 weeks for rheumatoid arthritis and psoriatic arthritis. Her next expected does is supposed to be December 06. Review of Systems Narrative: General: no fevers HENT: no problems swallowing CV: no shortness of breath Resp: no cough GI: No nausea, vomiting, abdominal pain : no dysuria, no increased urinary frequency, no hematuria Skin: no new rashes Musculoskeletal: no back pain Neuro: no muscle weakness Psyche: no depression, no anxiety PFSH PFSH Medical History (Updated 11/17/24 @ 10:37 by Williams Vanegas MD) History of elective section ?Z98.891 - History of uterine scar from previous surgery (ICD-10) Social History (Updated 11/17/24 @ 10:37 by Williams Vanegas MD) Narrative: Patient denies smoking occasionally drinks alcohol. 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 Smoking Status: Never smoker Second hand tobacco smoke exposure: No How often do you have a drink containing alcohol: never AUDIT-C Alcohol total score: 0 Non-prescribed substance use: denies use Meds Home Medications and Allergies Allergies Allergy/AdvReac Type Severity Reaction Status Date / Time indomethacin Allergy Verified 11/17/24 05:09 Sulfa (Sulfonamide Allergy Verified 11/17/24 05:09 Antibiotics) Exam Narrative: Exam Narrative: General appearance: Alert, cooperative, and in no distress Pulmonary: Chest symmetric, lungs clear bilaterally Cardiovascular Heart: Regular rate and rhythm, S1, S2, no murmurs/rubs/gallops Gastrointestinal Abdominal: soft, not distended, diffusely tender to palpation, more tender in bilateral lower quadrants, tender to percussion in the right lower quadrant with rebound tenderness. Skin: Normal skin color, texture, and turgor. No rashes or lesions. Psychiatric: Alert, cooperative, normal affect. Const: Vital Signs, click to edit/add: Vital Signs - 24 hr 11/17/24 05:05 11/17/24 05:41 11/17/24 05:42 Temperature 98.0 F 98.0 F Pulse Rate Pulse Rate [Pulse Oximeter] 85 84 Respiratory Rate 24 20 Blood Pressure [Ri ght Upper Arm] 121/84 118/74 Pulse Oximetry 98 80 L 98 Oxygen Delivery Me thod Nasal Cannula Oxygen Flow Rate 2 11/17/24 05:43 11/17/24 08:07 11/17/24 08:15 Temperature Pulse Rate 77 79 Pulse Rate [Pulse Oximeter] Respiratory Rate 18 Blood Pressure [Ri ght Upper Arm] Pulse Oximetry 98 100 100 Oxygen Delivery Me thod Nasal Cannula Oxygen Flow Rate 2 11/17/24 08:30 11/17/24 08:45 Temperature Pulse Rate 75 86 Pulse Rate [Pulse Oximeter] Respiratory Rate Blood Pressure [Ri ght Upper Arm] Pulse Oximetry 99 97 Oxygen Delivery Me thod Room Air Oxygen Flow Rate Results Labs Labs: Abnormal lab results 11/17/24 11/17/24 Range/Units 05:10 05:40 WBC 16.41 H (4.50-11.00) K/uL Hgb 11.9 L (12.0-16.0) gm/dL MCV 77 L (80-100) fL Neut % (Auto) 89.0 H (42.0-72.0) % Lymph % (Auto) 7.3 L (20-44) % Neut # (Auto) 14.60 H (1.7-7.0) K/uL Glucose 135 H (60-115) mg/dL ALT 37 H (4-35) U/L Total Protein 8.5 H (6.0-8.3) g/dL Urine Ketones 3+ A (Negative) Urine Blood 1+ A (Negative) Urine Bacteria Few A (None) Diabetes panel 11/17/24 Range/Units 05:10 Sodium 139 (135-149) mmol/L Potassium 3.7 (3.6-5.1) mmol/L Chloride 104 (96-114) mmol/L Carbon Dioxide 21 (20-32) mmol/L BUN 14 (5-24) mg/dL Creatinine 0.8 (0.5-1.5) mg/dL Glucose 135 H (60-115) mg/dL Calcium 9.6 (8.4-10.6) mg/dL AST 35 (12-35) U/L ALT 37 H (4-35) U/L Alkaline Phosphatase 95 (40-150) U/L Total Protein 8.5 H (6.0-8.3) g/dL Albumin 5.0 (3.3-5.0) g/dL Calcium panel 11/17/24 Range/Units 05:10 Calcium 9.6 (8.4-10.6) mg/dL Albumin 5.0 (3.3-5.0) g/dL Pituitary panel 11/17/24 Range/Units 05:10 Sodium 139 (135-149) mmol/L Potassium 3.7 (3.6-5.1) mmol/L Chloride 104 (96-114) mmol/L Carbon Dioxide 21 (20-32) mmol/L BUN 14 (5-24) mg/dL Creatinine 0.8 (0.5-1.5) mg/dL Glucose 135 H (60-115) mg/dL Calcium 9.6 (8.4-10.6) mg/dL Adrenal panel 11/17/24 Range/Units 05:10 Sodium 139 (135-149) mmol/L Potassium 3.7 (3.6-5.1) mmol/L Chloride 104 (96-114) mmol/L Carbon Dioxide 21 (20-32) mmol/L BUN 14 (5-24) mg/dL Creatinine 0.8 (0.5-1.5) mg/dL Glucose 135 H (60-115) mg/dL Calcium 9.6 (8.4-10.6) mg/dL Total Bilirubin 0.7 (0.1-1.5) mg/dL AST 35 (12-35) U/L ALT 37 H (4-35) U/L Alkaline Phosphatase 95 (40-150) U/L Total Protein 8.5 H (6.0-8.3) g/dL Albumin 5.0 (3.3-5.0) g/dL All other labs normal. Progress Note:A&P Assessment and plan (1) Acute appendicitis: Status: Acute Assessment and Plan: 34-year-old female on immunosuppression presents with abdominal pain that is suspicious for acute appendicitis. I discussed with the patient and her my clinical findings and her laboratory and imaging findings. Patient has elevated WBC of 16. Her abdominal CT shows dilated appendix with an appendicolith at the base of the appendix. This is suspicious for acute appendicitis. I recommended to proceed with laparoscopic appendectomy. The procedure was discussed in detail. The risks associated procedure including infection, bleeding, injury to intra-abdominal organs, and the need for additional procedures were all discussed with the patient, she agreed to proceed.
[2024-11-17] MEDS: LACTATED RINGERS 1000 ML 1,000 ML 125 ML IV (10:45)
[2024-11-17] MEDS: PIPERACILLIN/TAZOBACTAM 3.375 GM in 0.9 % SODIUM CHLORIDE Mini-bag 100 ML IVPB (11:00)
[2024-11-17] MEDS: BUPIVACAINE 0.25% 30 ML INJECTION (11:25)
[2024-11-17] MEDS: LIDOCAINE 1%-EPI 1:100,000 20 ML INFILTRATI (11:25)
--- NOTE | 2024-11-17 11:36 | P.GSOP_ITS ---
Operative Note Date of procedure: 11/17/24 Pre-op diagnosis: 1. Acute appendicitis. 2. Active immune suppression. Post-op diagnosis: Same Type of Procedure: 1. Laparoscopic appendectomy. Indications: 34-year-old female presented to emergency room with worsening abdominal pain that started at midnight last night. Patient had multiple episodes of vomiting. Upon her workup she was found to have elevated WBC. An abdominal CT was obtained that showed dilated appendix with an appendicolith at the base of the appendix. There was no evidence of an abscess. On clinical exam patient had tenderness to palpation in bilateral lower quadrants with right lower quadrant worse than the left and rebound tenderness in the right lower quadrant. Patient's clinical exam and history was suspicious for acute appendicitis. I recommended to proceed with laparoscopic appendectomy. The procedure was discussed in detail. The risks associated procedure including infection, bleeding, injury to intra-abdominal organs, and the need for additional procedures were all discussed with the patient, she agreed to proceed. Procedure Description: After discussing the risks and benefits of the procedure, the patient signed informed consent.? The operative site was marked and the patient was brought to the operating room and placed on the operating table in supine position.? Care was taken to pad the patient's pressure points.?? The patient was then intubated by anesthesia.?? The operative site was then prepped and draped in the usual sterile fashion.? A time-out was then performed. A 5-mm laparoscopy port was placed in the left upper quadrant guided by a 5-mm laparoscope placed into a translucent trochar. Passage through the layers of the abdominal wall was visualized with the laparoscope. A pneumoperitoneum was established. A 30-degree 5-mm laparoscope was advanced into the abdomen. The abdomen was briefly surveyed, and there was no evidence of diffuse peritonitis. A 12-mm port and a 5-mm port were placed in the left low quadrant and suprapubically, respectively, under direct visualization by laparoscope. Left upper quadrant entrance port was then examined intraabdominally by placing the camera through the left lower quadrant port and no intraabdominal injury was seen. The patient was placed in Trendelenburg position, allowing the abdominal contents to shift cephalad. The small bowel was moved toward the midline in the abdomen and this allowed for identification of the appendix. It appeared to be mildly inflamed at the base. The appendix was grasped and dissected from the peritoneum using Harmonic scalpel. A Maryland clamp was passed between the appendiceal mesentery and the base of the appendix, creating a window. Appendiceal mesentery was then clipped with 2 5 mm clips on the patient's side and divided with Harmonic scalpel on the specimen side. A vascular load Endo- ABDULAZIZ stapler was advanced through the 12-mm port into the abdomen and appendix was stapled off at its base. The appendix was then placed in an endoscopic retrieval bag and extracted from the abdomen through the 12-mm port. The abdomen was surveyed for hemostasis. And no bleeding was seen. The 12-mm port was withdrawn and the fascial defect was closed with 0-0 Vicryl stitch using Veto Jessica needle under direct visualization. The 5-mm port was removed under direct visualization. The left upper quadrant port was used to evacuate the pneumoperitoneum and then withdrawn. The skin incisions were closed with 4-0 monocryl. Steri-Strips were applied over the incisions. All counts were correct at the end of the case. The patient tolerated this procedure well and was transferred to PACU in stable condition. Findings: Mildly dilated appendix with inflammation near the base of the appendix. Uterine fibroid on the right. Small simple cyst on the left ovary. Anesthesia: GETA Surgeon: Williams Vanegas MD Estimated blood loss (mL): 5 Specimen: Appendix Condition: stable Disposition: PACU
--- NOTE | 2024-11-17 11:45 | P.ANES_ITS ---
Anesthesia Charges Start Date/Time Anesthesia Start Date: 11/17/24 Anesthesia Start Time: 10:44 Stop Date/Time Anesthesia Stop Date: 11/17/24 Anesthesia Stop Time: 11:45 Coding CPT Codes CPT Codes: ANESTH SURG LOWER ABDOMEN - 74071 ([id number]) P2 - PATIENT W/MILD SYST DISEASE, QK - CEMENT [place] [employer] 2-4 CNCRNT ANES PROC, QX - CUE SELECTOR SVC W/ MD MED DIRECTION
--- NOTE | 2024-11-17 11:45 | W.ANESCHARGE ---
Anesthesia Charges Start Date/Time Anesthesia Start Date: 11/17/24 Anesthesia Start Time: 10:44 Stop Date/Time Anesthesia Stop Date: 11/17/24 Anesthesia Stop Time: 11:45 Coding CPT Codes CPT Codes: ANESTH SURG LOWER ABDOMEN - 85706 ([id number]) P2 - PATIENT W/MILD SYST DISEASE, QK - WOODWINDS TEACHER 2-4 CNCRNT ANES PROC, QX - CAPTAIN/AIRLINE PILOT SVC W/ MD MED DIRECTION
--- NOTE | 2024-11-17 11:46 | P.ANES_ITS ---
Anesthesia Charges Start Date/Time Anesthesia Start Date: 11/17/24 Anesthesia Start Time: 10:44 Stop Date/Time Anesthesia Stop Date: 11/17/24 Anesthesia Stop Time: 11:45 Coding CPT Codes CPT Codes: ANESTH SURG LOWER ABDOMEN - 11478 ([id number]) QK - PERFECT BINDER SETTER 2-4 CNCRNT ANES PROC, QX - IDENTIFICATION CLERK SVC W/ MD MED DIRECTION, P2 - PATIENT W/MILD SYST DISEASE
--- NOTE | 2024-11-17 11:46 | W.ANESCHARGE ---
Anesthesia Charges Start Date/Time Anesthesia Start Date: 11/17/24 Anesthesia Start Time: 10:44 Stop Date/Time Anesthesia Stop Date: 11/17/24 Anesthesia Stop Time: 11:45 Coding CPT Codes CPT Codes: ANESTH SURG LOWER ABDOMEN - 45825 ([id number]) QK - EXECUTIVE DIRECTOR CONTRACT SHOP 2-4 CNCRNT ANES PROC, QX - INTERMISSION COORDINATOR SVC W/ MD MED DIRECTION, P2 - PATIENT W/MILD SYST DISEASE
--- NOTE | 2024-11-17 11:58 | ED.NURSE ---
Patient taken to same day surgery at 1045.
[2024-11-17] MEDS: LACTATED RINGERS 500 ML 500 ML 100 ML IV (13:15)
[2024-11-17] MEDS: ACETAMINOPHEN 500 MG TABLET 1000 MG PO (13:31)
--- NOTE | 2024-11-17 14:02 | SUR.PHASEII ---
Pt reports minimal pain from incisions. 3 lap sites covered with steri strips c/d/i. Pt drowsy on arrival from pacu, falling asleep when talking to patient. in room. pt tolerated popsicle and crackers. BPs running low 90s/50s.
--- NOTE | 2024-11-17 14:41 | SUR.PHASEII ---
Pt doing well. BPs are at her baseline.
--- NOTE | 2024-11-17 15:24 | SUR.PHASEII ---
Reviewed instructions with pt and . all questions answered.
== END 2024-11-17 15:25 | disposition home or self-care (01) ==
LOC: ED 11:30 → SS 11:31
PROVIDERS: Emergency Provider Internal Medicine; Visit Provider Surgery
PROC: 0DTJ4ZZ Resection of Appendix, Percutaneous Endoscopic Approach (ICD-10-PCS; CPT 44970; principal; 2024-11-17 10:30)
DX: K35.80 Unspecified acute appendicitis (principal); R10.9 Unspecified abdominal pain
CPT/HCPCS: 44970; 00840; 36415; 74177; 80053; 81001; 81003; 83690; 84703; 85025; 87086; 88304; 94761; 99283; 99285; A9270; J0665; J1100; J1171; J1630; J2060; J2371; J2405; J2543; J2704; J3010; J3490; J7030; J7120; Q9967